=== PATIENT | male | born 1950 | race Caucasian/White ===

== ENCOUNTER 2017-01-20 16:49 | Inpatient (IN) | payer MEDICARE, BC ==
[~2017-01-20] VITALS: Ht 177.8 cm; Wt 126.0 kg
[~2017-01-20 16:49] MED LIST: ACULAR LS 5 ML5 ML OS; ALBUTEROL SULF0.5 M1 IH; ALBUTEROL SULFAT3 M3 IH; ALBUTEROL0.83 MG/ML IH; ALBUTEROL1.25 MG/3 IH; ALDACTONE 25MG25 M1 PO; ALEVE 220MG220 MG PO; ALLEGRA 180MG180 MG PO; ALLEGRA ALLERGY60 MG PO; AMBIEN 5MG TABLE5 MG PO; AMITRIPTYLINE H10 M1 PO; ASPIRIN 32325 MG/TAB PO; ASPIRIN 81M81 MG/TA2 PO; ASPIRIN E.C. 8181 MG PO; ATARAX 10MG10 MG/TAB PO; ATARAX 25MG25 MG/TAB PO; ATENOLOL25 MG PO; ATENOLOL50 MG PO; ATIVAN1 MG PO; AVINZA30 M1 PO; B COMPLEX #11 TA1 PO; B COMPLEX #11 TAB PO; B COMPLEX1 TA2 PO; B-1250 MCG; BENADRYL25 M2 PO; BISACODYL5 MG PO; CARDENE 20MG CA20 M1 PO; CEPHALEXIN500 M1 PO; CIPRO 500MG TA500 MG PO; CLARITIN 1010 MG/TAB PO; COLACE 100100 MG/CAP PO; COLACE100 MG/10 PO; COLACE50 MG PO; CORDARONE200 MG/TAB; CORDARONE200 MG/TAB PO; COREG 3.123.125 MG/T PO; COREG 6.256.25 MG/TA PO; COUMADIN 3MG3 MG/TAB PO; COUMADIN 5MG5 MG/TAB PO; COUMADIN2.5 MG PO; COUMADIN4 MG PO; COUMADIN5 M1 PO; COUMADIN7.5 MG PO; COZAAR100 MG PO; CYANOCOBAL1000 MCG/M IM; CYCLOBENZAPRINE10 MG PO; CYMBALTA 30MG30 MG PO; CYMBALTA 60MG60 MG PO; DESYREL 50MG50 MG PO; DEXILANT60 MG PO; DIPROLENE OI 15GM OP; DOXYCYCLINE 10100 MG PO; ELIQUIS 5MG PO; FERROUS SU325 MG/TAB PO; FERROUS SULFATE65 MG PO; FIBER TABLETS1 TAB PO; FLEXERIL 1010 MG/TAB PO; FLEXERIL PO; FLOMAX 0.40.4 MG/CAP PO; FLOMAX0.4 MG PO; FLOVENT 44MCG I13 GM IH; FOLIC ACID 11 MG/TA1 PO; GLYCOLAX17 GM/PACK PO; HYDROXYZINE PAM25 MG PO; HYDROXYZINE50 MG PO; IMDUR 30MG30 MG/TAB PO; IMDUR 60MG60 MG/TAB PO; IMDUR60 MG PO; ISORDIL TITRADO30 MG PO; K-TAB20 PO; KADIAN30 MG PO; KLOR-CON M2020 MEQ PO; LASIX 20MG TABL20 MG PO; LASIX 40MG TABL40 MG PO; LASIX20 MG PO; LEVAQUIN 5500 MG/TA1 PO; LIPITOR 10MG10 MG PO; LISINOPRIL/HCTZ1 TAB PO; LUNESTA3 MG PO; LYRICA 100MG C100 M1 PO; METAMUCIL PO; METAMUCIL3.4 GM/DOS PO; MILK OF MA400 MG/5 M PO; MIRALAX PA17 GM/Dose PO; MIRTAZAPINE7.5 MG PO; MORPHINE 1515 MG/TAB PO; MS CONTIN 115 MG/TAB PO; MSIR30 M1 PO; MSIR30 MG PO; MULTI VITAMINS1 TAB PO; MULTIPLE VITAMI1 CAP PO; MULTIPLE VITAMI1 TAB PO; MYSOLINE 5050 MG/TAB PO; NATURAL TEARS OS; NEURONTIN300 MG PO; NEURONTIN300 MG/CAP PO; NITRO-DUR0.1 MG/PAT TD; NITROQUICK0.4 MG SL; NITROSTAT0.4 MG/TAB SL; NIZORAL CREAM15 GM TP; NO HOME MEDICATIONS; NORCO 325 MG-51 TAB PO; NORVASC 5MG5 MG/TAB PO; OCUFLOX 10 ML10 ML OS; OMEPRAZOLE DR20 MG PO; OXYCONTIN 20MG20 MG PO; PEPCID 20MG TAB20 MG PO; PLAVIX 75MG TAB75 MG PO; POLYETHYLENE GL1 PO6; PRED FORTE 1 ML1 ML OS; PRILOTC PO; PRINIVIL10 MG PO; PROAIR HFA0.09 MG/AC IH; PROBIOTIC FORMU1 CAP PO; PROSCAR 5MG5 MG PO; PROTONIX 40MG T40 MG PO; PROVENTIL0.09 MG/A1 IH; PULMO-AIDE COMP1 DEV; RANEXA 500MG T500 MG PO; ROXANOL PO; SENNA LAX8.6 MG PO; SENNA SOFT15 MG PO; SINEMET 10/101 UDTAB PO; SLOW-MAG 6464 MG/TAB PO; STIOLTO RESPIMAT4 GM IH; STOOL SOFTENER100 M2 PO; TENORMIN 2525 MG/TAB PO; THERAGRAN TAB1 UDTAB PO; THIAMINE 1100 MG/TAB PO; TRIAMCINOLONE AC0.13 TP; TYLENOL 325MG325 MG PO; TYLENOL 500MG500 MG PO; TYLENOL EXTRA500 M1 PO; ULTRAM 50MG TAB50 MG PO; ULTRAM ER100 MG PO; VERAMYST27.5 MCG/A NS; VICODIN 5/5001 UDTAB PO; VITAMIN B COMPL1 TA1 PO; VITAMIN C BUFF500 MG PO; VITAMIN C500 MG PO; VODKA; ZANTAC 150MG T150 MG PO; ZAROXOLYN 2.52.5 MG PO; ZESTRIL 10MG10 MG PO; ZESTRIL 5MG5 MG PO; ZOCOR 40MG40 MG PO; ZOCOR40 MG PO; [UNRECOGNIZED DRUG - OTHER] PO
[2017-01-20 18:38] VITALS: BP 142/78; PULSE 66; TEMP 97.5
[2017-01-20 19:23] VITALS: BP 142/75; PULSE 67; TEMP 79.5
[2017-01-20 23:51] VITALS: BP 117/64; PULSE 63; TEMP 98.5
[2017-01-21 03:22] VITALS: BP 131/68; PULSE 60; TEMP 98.7
[2017-01-21 07:54] VITALS: BP 120/64; PULSE 64; TEMP 98.8
[2017-01-21 08:10] LABS: CALCIUM 8.1 mg/dL (8.4-10.2); CREATININE, serum 1.06 mg/dL (0.66-1.25); POTASSIUM 3.2 mmol/L (3.4-5.0)
[2017-01-21 12:32] VITALS: BP 118/96; PULSE 66; TEMP 97.4
[2017-01-21 16:35] VITALS: BP 112/83; PULSE 59; TEMP 98.1
[2017-01-21 20:15] VITALS: BP 119/71; PULSE 61; TEMP 98.6
[2017-01-21 22:50] VITALS: BP 118/70; PULSE 60; TEMP 98.7
[2017-01-22 03:40] VITALS: BP 122/79; PULSE 58; TEMP 98.2
[2017-01-22 07:23] VITALS: BP 136/70; PULSE 60; TEMP 97.3
[2017-01-22 07:54] LABS: CALCIUM 8.7 mg/dL (8.4-10.2); CREATININE, serum 1.13 mg/dL (0.66-1.25); POTASSIUM 3.7 mmol/L (3.4-5.0)
[2017-01-22 11:08] VITALS: BP 153/89; PULSE 81; TEMP 98.3
[2017-01-22 17:01] VITALS: BP 124/75; PULSE 60; TEMP 97.8
[2017-01-22 19:52] VITALS: BP 124/80; PULSE 57; TEMP 98.7
[2017-01-22 23:27] VITALS: BP 103/63; PULSE 59; TEMP 98.2
[2017-01-23] VITALS (7 sets, daily range): BP systolic 96–136; BP diastolic 63–89; PULSE 58–80; TEMP 97.6–99.7
[2017-01-23 07:12] LABS: CALCIUM 8.8 mg/dL (8.4-10.2); CREATININE, serum 1.31 mg/dL (0.66-1.25); POTASSIUM 3.6 mmol/L (3.4-5.0)
[2017-01-23 09:36] LABS: BASO # 0.1 (0.0-0.2); BASO % 0.7 % (0.0-2.0); EOS # 0.6 (0.0-0.7); EOS % 7.7 % (0-4.0); GRAN # 4.4 (1.4-6.5); GRAN % 58.8 % (42.2-75.2); LYMPH # 1.1 (1.2-3.4); LYMPH % 15.2 % (20.0-51.0); MEAN CORPUSCULAR HGB CONC 33 g/dl (33.0-37.0); MEAN PLATELET VOLUME 10.6 fl (7.4-10.4); MONO # 1.3 (0.1-0.6); MONO % 17.3 % (1.7-9.3); PLATELET COUNT 161 K/mm3 (130-400); RED BLOOD COUNT 3.33 M/mm3 (4.20-5.60); REDCELL DISTRIBUTION WIDTH-CV 15.4 % (11.5-14.5); WHITE BLOOD COUNT 7.4 K/mm3 (4.8-10.8)
[2017-01-23 09:38] LABS: ALLEN TEST YES; ALLENS TEST RESULT PASS; ARTERIAL BLD GAS O2 SATURATION 85.6 % (92-100); ARTERIAL BLD GAS TCO2 CT 31.9; ARTERIAL BLOOD GAS BASE EXCESS 5.3 (-2-2); ARTERIAL BLOOD GAS HCO3 30.4 meq/L (22-26); ARTERIAL BLOOD GAS PHT 7.43 C (7.35-7.45); ARTERIAL BLOOD GAS PO2 55.2 mmHg (80-100); ARTERIAL BLOOD GAS PO2T 55.2 (80-100); ARTERIAL BLOOD GAS pH 7.43 (7.35-7.45); ATS? YES; OXYHEMOGLOBIN 84.5 %
[2017-01-23 09:46] LABS: ALANINE AMINOTRANSFERASE 25 U/L (21-72); ALBUMIN 3.6 gm/dL (3.5-5.0); ALKALINE PHOSPHATASE 124 U/L (50-136); BILIRUBIN,TOTAL 1.3 mg/dL (0.0-1.0); MAGNESIUM 1.7 mg/dL (1.6-2.3); PHOSPHOROUS 3.7 mg/dL (2.5-4.5); TOTAL PROTEIN 6.6 gm/dL (6.4-8.2)
[2017-01-23 09:51] LABS: HEMATOCRIT 36.4 % (42.0-52.0); HEMOGLOBIN 11.9 g/dl (13.5-18.0); MEAN CORPUSCULAR HEMOGLOBIN 36 pg (27.0-31.0)
[2017-01-23 09:52] LABS: MEAN CELL VOLUME 109 fl (80.0-100.0)
[2017-01-23 09:58] LABS: BILIRUBIN,DIRECT 0.5 mg/dL (0.0-0.4)
[2017-01-23 10:02] LABS: TROPONIN-I < 0.012 ng/mL (0.000-0.034)
[2017-01-23 10:12] LABS: LIPASE 12 U/L (23-300)
[2017-01-23 16:07] LABS: PH 6 (5-8); SQUAMOUS EPITHELIAL None Seen /hpf; URINE APPEARANCE Hazy; URINE BACTERIA None Seen /hpf; URINE BILIRUBIN Negative (NEGATIVE); URINE BLOOD Negative (NEGATIVE); URINE COLOR Amber; URINE GLUCOSE Negative (NEGATIVE); URINE KETONE Negative (NEGATIVE); URINE RBC 0-2 /hpf; URINE UROBILINOGEN >=4.0 mg/dL (NEGATIVE); URINE WBC 0-2 /hpf
[2017-01-24 00:09] VITALS: BP 116/62; PULSE 62; TEMP 98.5
[2017-01-24 03:17] VITALS: BP 148/73; PULSE 68; TEMP 97.8
[2017-01-24 07:39] LABS: CALCIUM 8.5 mg/dL (8.4-10.2); CREATININE, serum 1.09 mg/dL (0.66-1.25); POTASSIUM 3.6 mmol/L (3.4-5.0)
[2017-01-24 07:41] VITALS: BP 111/60; PULSE 60; TEMP 98.2
[2017-01-24 10:13] LABS: BASO % 0.6 % (0.0-2.0); EOS # 0.5 (0.0-0.7); EOS % 7.5 % (0-4.0); GRAN # 4.1 (1.4-6.5); GRAN % 61.5 % (42.2-75.2); HEMATOCRIT 35.9 % (42.0-52.0); HEMOGLOBIN 11.7 g/dl (13.5-18.0); LYMPH # 0.8 (1.2-3.4); LYMPH % 12.3 % (20.0-51.0); MEAN CELL VOLUME 110 fl (80.0-100.0); MEAN CORPUSCULAR HEMOGLOBIN 36 pg (27.0-31.0); MEAN CORPUSCULAR HGB CONC 33 g/dl (33.0-37.0); MEAN PLATELET VOLUME 11.5 fl (7.4-10.4); MONO # 1.2 (0.1-0.6); MONO % 17.8 % (1.7-9.3); PLATELET COUNT 160 K/mm3 (130-400); RED BLOOD COUNT 3.26 M/mm3 (4.20-5.60); REDCELL DISTRIBUTION WIDTH-CV 15.5 % (11.5-14.5); WHITE BLOOD COUNT 6.7 K/mm3 (4.8-10.8)
[2017-01-24 11:29] VITALS: BP 110/75; PULSE 64; TEMP 98.6
[2017-01-24] MEDS ORDERED: SYNTHROID0.05 MG/TA PO (14:23)
[2017-01-24] MEDS ORDERED: DEMADEX 20MG20 M1 PO (14:26)
[2017-01-24 16:07] VITALS: BP 132/66; PULSE 72; TEMP 98.2
[2017-01-24 21:00] LABS: CALCIUM 8.7 mg/dL (8.4-10.2); CREATININE, serum 1.05 mg/dL (0.66-1.25); POTASSIUM 3.9 mmol/L (3.4-5.0)
[2017-01-24 21:15] VITALS: BP 127/70; PULSE 64; TEMP 97.9
== END 2017-01-24 22:30 | disposition home or self-care (01) | DRG 292 ==
LOC: MEDICAL 16:49
PROVIDERS: Internal Medicine; Internal Medicine Interventional Cardiology; Nurse Practitioner Family; Physician Assistant Medical
DX: I11.0 Hypertensive heart disease with heart failure (principal); I69.351 Hemiplegia and hemiparesis following cerebral infarction affecting right dominant side; E87.4 Mixed disorder of acid-base balance; N17.9 Acute kidney failure, unspecified; Z66 Do not resuscitate; I50.33 Acute on chronic diastolic (congestive) heart failure; I25.10 Atherosclerotic heart disease of native coronary artery without angina pectoris; Z95.1 Presence of aortocoronary bypass graft; J44.9 Chronic obstructive pulmonary disease, unspecified; I48.91 Unspecified atrial fibrillation; Z95.810 Presence of automatic (implantable) cardiac defibrillator; I36.1 Nonrheumatic tricuspid (valve) insufficiency; E03.9 Hypothyroidism, unspecified
CPT/HCPCS: OP; 99223; 99233-AI; C9113; J1940; J3420; J7060; Q9967

== ENCOUNTER 2017-02-05 12:00 | Outpatient (RCR) | payer MEDICARE, BC ==
[2017-01-17 12:50] VITALS: BP 124/65; PULSE 60; TEMP 97.8
[2017-01-17 13:10] LABS: CALCIUM 8.5 mg/dL (8.4-10.2); CREATININE, serum 1.09 mg/dL (0.66-1.25); POTASSIUM 4.1 mmol/L (3.4-5.0)
[2017-01-17 16:17] VITALS: BP 111/54; PULSE 58; TEMP 97.7
[2017-01-18 12:34] VITALS: BP 121/65; PULSE 61; TEMP 98.1
[2017-01-18 14:06] LABS: CALCIUM 8.9 mg/dL (8.4-10.2); CREATININE, serum 1.49 mg/dL (0.66-1.25); POTASSIUM 4.2 mmol/L (3.4-5.0)
[2017-01-18 18:03] VITALS: BP 146/67; PULSE 60
[2017-01-19 12:22] VITALS: BP 130/69; PULSE 63; TEMP 97.7
[2017-01-19 14:56] LABS: CALCIUM 8.7 mg/dL (8.4-10.2); CREATININE, serum 1.3 mg/dL (0.66-1.25); POTASSIUM 4.4 mmol/L (3.4-5.0)
[2017-01-19 17:37] VITALS: BP 121/61; PULSE 62
[2017-01-20 12:35] VITALS: BP 119/77; PULSE 60; TEMP 97.3
[2017-01-20 12:40] LABS: CALCIUM 8.3 mg/dL (8.4-10.2); CREATININE, serum 1.11 mg/dL (0.66-1.25)
[2017-01-31 11:30] VITALS: BP 120/66; PULSE 62; TEMP 98.2
[2017-01-31 11:53] LABS: CALCIUM 9.1 mg/dL (8.4-10.2); CREATININE, serum 1.16 mg/dL (0.66-1.25); POTASSIUM 5.4 mmol/L (3.4-5.0)
[2017-01-31 17:31] VITALS: BP 122/65; PULSE 59; TEMP 97.7
[2017-02-01 12:36] VITALS: BP 123/88; PULSE 61; TEMP 98.2
[2017-02-01 14:37] LABS: CALCIUM 9.1 mg/dL (8.4-10.2); CREATININE, serum 1.09 mg/dL (0.66-1.25); POTASSIUM 4.3 mmol/L (3.4-5.0)
[2017-02-02 12:12] VITALS: BP 130/72; PULSE 65; TEMP 98.4
[2017-02-02 13:46] LABS: CALCIUM 8.7 mg/dL (8.4-10.2); CREATININE, serum 1.08 mg/dL (0.66-1.25); POTASSIUM 4.1 mmol/L (3.4-5.0)
[2017-02-03 12:35] VITALS: BP 107/64; PULSE 60; TEMP 98.3
[2017-02-03 12:53] LABS: CALCIUM 8.6 mg/dL (8.4-10.2); CREATININE, serum 1.17 mg/dL (0.66-1.25); POTASSIUM 4.3 mmol/L (3.4-5.0)
[2017-02-04 11:02] VITALS: BP 120/73; PULSE 72; TEMP 97.9
[2017-02-04 11:18] LABS: CALCIUM 8.6 mg/dL (8.4-10.2); CREATININE, serum 1.08 mg/dL (0.66-1.25); POTASSIUM 4.5 mmol/L (3.4-5.0)
[~2017-02-05] VITALS: Ht 177.8 cm; Wt 73.1 kg
[2017-02-05 11:15] VITALS: BP 130/76; PULSE 62; TEMP 98.7
[2017-02-05 11:43] LABS: CALCIUM 8.8 mg/dL (8.4-10.2); CREATININE, serum 1.14 mg/dL (0.66-1.25); POTASSIUM 4.2 mmol/L (3.4-5.0)
[~2017-02-05 12:00] MED LIST changes: +DEMADEX 20MG20 M1 PO; +SYNTHROID0.05 MG/TA PO
== END 2017-02-05 18:00 | disposition home or self-care (01) ==
LOC: EUO 12:00
PROVIDERS: Family Medicine; Internal Medicine Interventional Cardiology
DX: E53.8 Deficiency of other specified B group vitamins (principal)
CPT/HCPCS: OP; G0378; G0379; J1940; J7060

== ENCOUNTER 2017-03-31 10:45 | Outpatient (RCR) | payer MEDICARE, BC | END 2017-05-20 | disposition home or self-care (01) | LOC: MKS.ESL.PT | DX: R60.9 Edema, unspecified (principal); I50.9 Heart failure, unspecified | CPT/HCPCS: G8978-GP; G8979-GP; G9174-GN; G9175-GN ==

== ENCOUNTER → 2017-04-01 | Outpatient (CLI) | payer MEDICARE, BC ==
[~2017-04-01] MED LIST changes: +ALDACTONE50 MG PO; +AMPICILLIN 22 G/VIAL IV; +BUMEX2 MG PO; +DEMADEX100 MG PO; +DULCOLAX S10 MG/SUPP RC; +HEPARIN LOCK FLU5 M1 IV; +MAG-OX 400400 MG/TAB PO; +MILK OF MA400 MG/52 PO; +MS CONTIN 330 MG/TAB PO; +NORCO 325 MG-7.1 TAB PO; +NS INT FLUSH 1010 ML IV; +OYSCO 500500 M1 PO; +SYNTHROID0.112 MG/T PO; +VANCOCIN HCL1 GM IV; +VITAMIN B COMPL1 T16 PO; +VITAMINC500CH PO; +ZANTAC 300300 MG PO
== END ==
LOC: EDSEX 10:30 → COL.RAD 10:30
DX: E03.8 Other specified hypothyroidism (principal)

== ENCOUNTER → 2017-04-30 | Outpatient (CLI) | payer MEDICARE, BC | LOC: COL.RAD 14:05 | DX: M79.89 Other specified soft tissue disorders (principal) ==

== ENCOUNTER 2017-05-12 17:30 | Emergency (ER) | payer MEDICARE, BC ==
[~2017-05-12] VITALS: Ht 177.8 cm; Wt 111.4 kg
[~2017-05-12 17:30] MED LIST changes: -ALDACTONE50 MG PO; -AMPICILLIN 22 G/VIAL IV; -BUMEX2 MG PO; -DEMADEX100 MG PO; -DULCOLAX S10 MG/SUPP RC; -HEPARIN LOCK FLU5 M1 IV; -MAG-OX 400400 MG/TAB PO; -MILK OF MA400 MG/52 PO; -MS CONTIN 330 MG/TAB PO; -NORCO 325 MG-7.1 TAB PO; -NS INT FLUSH 1010 ML IV; -OYSCO 500500 M1 PO; -SYNTHROID0.112 MG/T PO; -VANCOCIN HCL1 GM IV; -VITAMIN B COMPL1 T16 PO; -VITAMINC500CH PO; -ZANTAC 300300 MG PO
[2017-05-12 17:33] VITALS: TEMP 98.1
[2017-05-12 18:33] LABS: BASO # 0.1 (0.0-0.2); BASO % 0.7 % (0.0-2.0); EOS # 0.3 (0.0-0.7); EOS % 3.5 % (0-4.0); GRAN # 5.9 (1.4-6.5); GRAN % 70.8 % (42.2-75.2); LYMPH # 0.9 (1.2-3.4); LYMPH % 11.3 % (20.0-51.0); MEAN CELL VOLUME 100 fl (80.0-100.0); MEAN CORPUSCULAR HGB CONC 34 g/dl (33.0-37.0); MEAN PLATELET VOLUME 10.8 fl (7.4-10.4); MONO # 1.1 (0.1-0.6); MONO % 13.3 % (1.7-9.3); PLATELET COUNT 144 K/mm3 (130-400); RED BLOOD COUNT 3.42 M/mm3 (4.20-5.60); REDCELL DISTRIBUTION WIDTH-CV 15.7 % (11.5-14.5); WHITE BLOOD COUNT 8.3 K/mm3 (4.8-10.8)
[2017-05-12 18:35] LABS: HEMATOCRIT 34.1 % (42.0-52.0); HEMOGLOBIN 11.6 g/dl (13.5-18.0); MEAN CORPUSCULAR HEMOGLOBIN 34 pg (27.0-31.0)
[2017-05-12 18:36] LABS: INR 1.2 (0.8-3.0); PROTHROMBIN TIME 13.9 SECONDS (9.7-12.8)
[2017-05-12 18:38] LABS: PARTIAL THROMBOPLASTIN TIME 34.9 SECONDS (26.0-37.0)
[2017-05-12 18:44] LABS: ADJUSTED CALCIUM 8.5 mg/dL (8.4-10.2); ALANINE AMINOTRANSFERASE 21 U/L (21-72); ALBUMIN 4.2 gm/dL (3.5-5.0); ALKALINE PHOSPHATASE 133 U/L (50-136); ANION GAP 13 mmol/L (7-16); BILIRUBIN,TOTAL 1.2 mg/dL (0.0-1.0); BLOOD UREA NITROGEN 19 mg/dL (9-20); CALCIUM 8.7 mg/dL (8.4-10.2); CARBON DIOXIDE 27 mmol/L (22-30); CREATININE, serum 0.95 mg/dL (0.66-1.25); GLUCOSE 110 mg/dL (74-106); MAGNESIUM 2.2 mg/dL (1.6-2.3); PHOSPHOROUS 3.7 mg/dL (2.5-4.5); SODIUM 127 mmol/L (137-145); TOTAL PROTEIN 7.4 gm/dL (6.4-8.2)
[2017-05-12 18:47] LABS: CHLORIDE 87 mmol/L (98-107)
[2017-05-12 18:56] LABS: B-TYPE NATRIURETIC PEPTIDE 1880 pg/mL (0-125)
[2017-05-12 18:58] LABS: TROPONIN-I < 0.012 ng/mL (0.000-0.034)
[2017-05-12 21:24] VITALS: BP 149/78; PULSE 84
== END 2017-05-12 21:31 | disposition home or self-care (01) ==
LOC: COL.ER 17:30
PROVIDERS: Emergency Medicine
DX: I11.0 Hypertensive heart disease with heart failure (principal); I50.9 Heart failure, unspecified; I25.10 Atherosclerotic heart disease of native coronary artery without angina pectoris; E87.1 Hypo-osmolality and hyponatremia; I48.91 Unspecified atrial fibrillation; Z79.01 Long term (current) use of anticoagulants; Z99.81 Dependence on supplemental oxygen; Z95.810 Presence of automatic (implantable) cardiac defibrillator; Z86.711 Personal history of pulmonary embolism; E78.5 Hyperlipidemia, unspecified

== ENCOUNTER 2017-05-30 12:30 | Outpatient (RCR) | payer MEDICARE, BC ==
[2017-06-08] MEDS ORDERED: PROTONIX 40MG T40 MG PO (23:59)
[2017-06-09] MEDS ORDERED: SYNTHROID0.112 MG/T PO (00:01)
[2017-06-09] MEDS ORDERED: BUMEX2 MG PO (00:03)
[2017-06-09] MEDS ORDERED: ZANTAC 300300 MG PO (00:05)
[2017-06-09] MEDS ORDERED: CYMBALTA 30MG30 MG PO (00:06)
[2017-06-09] MEDS ORDERED: PROAIR HFA0.09 MG/AC IH (00:12)
[2017-06-13] MEDS ORDERED: MS CONTIN 115 MG/TAB PO (09:30)
[2017-06-27] MEDS ORDERED: TYLENOL 325MG325 MG PO (08:22)
[2017-07-12] MEDS ORDERED: MSIR30 MG PO (14:51)
[2017-07-12] MEDS ORDERED: BUMEX2 MG PO (15:08)
[2017-07-12] MEDS ORDERED: IMDUR 60MG60 MG/TAB PO (15:15)
[2017-07-15] MEDS ORDERED: FLOVENT 44MCG I13 GM IH (14:19)
[2017-07-21] MEDS ORDERED: VITAMINC500CH PO (08:28)
[2017-07-21] MEDS ORDERED: VITAMIN B COMPL1 T16 PO (08:28)
[2017-07-21] MEDS ORDERED: OYSCO 500500 M1 PO (08:29)
[2017-07-21] MEDS ORDERED: NORCO 325 MG-51 TAB PO (09:01)
[2017-07-25] MEDS ORDERED: MS CONTIN 330 MG/TAB PO (15:28)
[2017-08-11] MEDS ORDERED: HEPARIN LOCK FLU5 M1 IV (08:43)
[2017-08-11] MEDS ORDERED: MS CONTIN 330 MG/TAB PO (08:43)
[2017-08-11] MEDS ORDERED: AMPICILLIN 22 G/VIAL IV (08:43)
[2017-08-11] MEDS ORDERED: NORCO 325 MG-7.1 TAB PO (08:43)
[2017-08-11] MEDS ORDERED: DULCOLAX S10 MG/SUPP RC (08:56)
[2017-08-11] MEDS ORDERED: ALDACTONE50 MG PO (09:22)
[2017-08-11] MEDS ORDERED: DEMADEX100 MG PO (09:24)
[2017-08-11] MEDS ORDERED: MAG-OX 400400 MG/TAB PO (09:25)
[2017-08-11] MEDS ORDERED: MILK OF MA400 MG/52 PO (09:26)
[2017-08-11] MEDS ORDERED: NS INT FLUSH 1010 ML IV (09:28)
[2017-08-11] MEDS ORDERED: CORDARONE200 MG/TAB PO (10:03)
[2017-08-11] MEDS ORDERED: VANCOCIN HCL1 GM IV (12:02)
[2017-08-19] MEDS ORDERED: ALDACTONE50 MG PO (11:35)
[2017-08-19] MEDS ORDERED: PROBIOTIC GOLD1 EACH PO (11:35)
[2017-08-19] MEDS ORDERED: CORDARONE200 MG/TAB PO (11:36)
[2017-08-19] MEDS ORDERED: CEPACOL SORE TH1 LO8 MM (11:36)
[2017-08-19] MEDS ORDERED: ASPIRIN 32325 MG/TAB PO (11:36)
[2017-08-19] MEDS ORDERED: COREG 6.256.25 MG/TA PO (11:37)
[2017-08-19] MEDS ORDERED: B-121000 MCG PO (11:37)
[2017-08-19] MEDS ORDERED: DEMADEX100 MG PO (11:38)
[2017-08-19] MEDS ORDERED: DULCOLAX S10 MG/SUPP RC (11:45)
[2017-08-19] MEDS ORDERED: ELIQUIS 5MG PO (11:47)
[2017-08-19] MEDS ORDERED: FLOMAX 0.40.4 MG/CAP PO (11:49)
[2017-08-19] MEDS ORDERED: FERROUS GL325 MG/TAB PO (11:49)
[2017-08-19] MEDS ORDERED: FLEET ENEM1 BOT/133 RC (11:49)
[2017-08-19] MEDS ORDERED: FLOVENT 44MCG I13 GM IH (11:50)
[2017-08-19] MEDS ORDERED: IMDUR 60MG60 MG/TAB PO (11:51)
[2017-08-19] MEDS ORDERED: LYRICA 100MG C100 M1 PO (11:51)
[2017-08-19] MEDS ORDERED: SLOW-MAG 6464 MG/TAB PO (11:52)
== END 2017-08-24 | disposition still patient (30) ==
LOC: MKS.ESL.PT
DX: R53.1 Weakness (principal); R26.81 Unsteadiness on feet
CPT/HCPCS: G8978-GP; G8979-GP

== ENCOUNTER 2017-06-08 20:33 | Inpatient (IN) | payer MEDICARE, BC ==
[~2017-06-08] VITALS: Ht 177.8 cm; Wt 111.5 kg
[2017-06-08 21:40] LABS: BASO # 0.1 (0.0-0.2); EOS # 0.5 (0.0-0.7); EOS % 6.3 % (0-4.0); GRAN # 5.1 (1.4-6.5); GRAN % 61.4 % (42.2-75.2); HEMATOCRIT 38.4 % (42.0-52.0); LYMPH # 1.5 (1.2-3.4); MEAN CELL VOLUME 101 fl (80.0-100.0); MEAN CORPUSCULAR HEMOGLOBIN 34 pg (27.0-31.0); MEAN CORPUSCULAR HGB CONC 34 g/dl (33.0-37.0); MEAN PLATELET VOLUME 11.9 fl (7.4-10.4); MONO % 12.1 % (1.7-9.3); PLATELET COUNT 198 K/mm3 (130-400); REDCELL DISTRIBUTION WIDTH-CV 15.6 % (11.5-14.5); WHITE BLOOD COUNT 8.4 K/mm3 (4.8-10.8)
[2017-06-08 21:41] LABS: INR 1.6 (0.8-3.0); PROTHROMBIN TIME 17.8 SECONDS (9.7-12.8)
[2017-06-08 21:45] LABS: ADJUSTED CALCIUM 8.7 mg/dL (8.4-10.2); ALBUMIN 4.2 gm/dL (3.5-5.0); BILIRUBIN,TOTAL 0.6 mg/dL (0.0-1.0); CALCIUM 8.9 mg/dL (8.4-10.2); TOTAL PROTEIN 7.5 gm/dL (6.4-8.2)
[2017-06-08 23:48] LABS: THYROID STIMULATING HORMONE 2.37 uIU/mL (0.465-4.680)
[2017-06-08] MEDS ORDERED: PROTONIX 40MG T40 MG PO (23:59)
[2017-06-09] MEDS ORDERED: SYNTHROID0.112 MG/T PO (00:01)
[2017-06-09] MEDS ORDERED: BUMEX2 MG PO (00:03)
[2017-06-09] MEDS ORDERED: ZANTAC 300300 MG PO (00:05)
[2017-06-09] MEDS ORDERED: CYMBALTA 30MG30 MG PO (00:06)
[2017-06-09] MEDS ORDERED: PROAIR HFA0.09 MG/AC IH (00:12)
[2017-06-09 00:59] VITALS: BP 121/60; PULSE 59; TEMP 98.7
[2017-06-09 08:00] VITALS: BP 132/63; PULSE 59; TEMP 98.6
[2017-06-09 08:02] LABS: BASO # 0.1 (0.0-0.2); BASO % 0.5 % (0.0-2.0); EOS # 0.5 (0.0-0.7); GRAN # 7.7 (1.4-6.5); GRAN % 73.6 % (42.2-75.2); HEMATOCRIT 37.2 % (42.0-52.0); HEMOGLOBIN 12.2 g/dl (13.5-18.0); LYMPH # 1.1 (1.2-3.4); LYMPH % 10.1 % (20.0-51.0); MEAN CELL VOLUME 105 fl (80.0-100.0); MEAN CORPUSCULAR HEMOGLOBIN 34 pg (27.0-31.0); MEAN CORPUSCULAR HGB CONC 33 g/dl (33.0-37.0); MEAN PLATELET VOLUME 11.5 fl (7.4-10.4); MONO # 1.1 (0.1-0.6); MONO % 10.3 % (1.7-9.3); PLATELET COUNT 184 K/mm3 (130-400); RED BLOOD COUNT 3.56 M/mm3 (4.20-5.60); WHITE BLOOD COUNT 10.5 K/mm3 (4.8-10.8)
[2017-06-09 08:10] LABS: CALCIUM 8.8 mg/dL (8.4-10.2); POTASSIUM 4.2 mmol/L (3.4-5.0)
[2017-06-09 12:23] LABS: PH 7 (5-8); SQUAMOUS EPITHELIAL None Seen /hpf; URINE APPEARANCE Hazy; URINE BACTERIA None Seen /hpf; URINE BILIRUBIN Negative (NEGATIVE); URINE BLOOD 3+ (NEGATIVE); URINE COLOR Yellow; URINE GLUCOSE Negative (NEGATIVE); URINE KETONE Negative (NEGATIVE); URINE RBC >50 /hpf; URINE UROBILINOGEN Negative (NEGATIVE)
[2017-06-09 12:37] VITALS: BP 120/69; PULSE 59; TEMP 98.8
[2017-06-09 17:16] VITALS: BP 155/80; PULSE 60; TEMP 98
[2017-06-09 22:06] VITALS: BP 121/54; PULSE 59; TEMP 99
[2017-06-10] VITALS (9 sets, daily range): BP systolic 106–129; BP diastolic 58–79; PULSE 59–65; TEMP 98–99.8
[2017-06-10 08:18] LABS: HEMATOCRIT 37.8 % (42.0-52.0); HEMOGLOBIN 12.2 g/dl (13.5-18.0)
[2017-06-10 11:49] LABS: INR 1.4 (0.8-3.0); PROTHROMBIN TIME 15.2 SECONDS (9.7-12.8)
[2017-06-11 02:10] VITALS: BP 119/62; PULSE 58; TEMP 99.8
[2017-06-11 05:10] VITALS: BP 117/60; PULSE 59; TEMP 99.6
[2017-06-11 07:11] LABS: HEMATOCRIT 37.2 % (42.0-52.0); HEMOGLOBIN 12.3 g/dl (13.5-18.0)
[2017-06-11 07:21] LABS: CALCIUM 8.8 mg/dL (8.4-10.2); CREATININE, serum 1.21 mg/dL (0.66-1.25); POTASSIUM 3.8 mmol/L (3.4-5.0)
[2017-06-11 10:00] VITALS: BP 92/59; PULSE 62; TEMP 98.8
[2017-06-11 14:42] VITALS: BP 111/71; PULSE 61; TEMP 99
[2017-06-11 18:25] VITALS: BP 113/71; PULSE 58; TEMP 99.2
[2017-06-11 21:58] VITALS: BP 126/74; PULSE 64; TEMP 98.5
[2017-06-12 01:56] VITALS: BP 110/67; PULSE 88; TEMP 97.3
[2017-06-12 05:54] VITALS: BP 111/83; PULSE 60; TEMP 98.4
[2017-06-12 07:38] LABS: HEMATOCRIT 34.9 % (42.0-52.0); HEMOGLOBIN 11.4 g/dl (13.5-18.0)
[2017-06-12 09:39] VITALS: BP 147/76; PULSE 56; TEMP 98.7
[2017-06-12 13:43] VITALS: BP 110/69; PULSE 60; TEMP 98.1
[2017-06-12 17:49] VITALS: BP 112/68; PULSE 60; TEMP 98
[2017-06-12 21:55] VITALS: BP 129/66; PULSE 99; TEMP 98.5
[2017-06-13 02:15] VITALS: BP 111/61; PULSE 57; TEMP 98.3
[2017-06-13 05:16] VITALS: BP 133/73; PULSE 59; TEMP 98.2
[2017-06-13] MEDS ORDERED: MS CONTIN 115 MG/TAB PO (09:30)
[2017-06-13 09:41] VITALS: BP 113/58; PULSE 63; TEMP 98.5
[2017-06-13 12:52] VITALS: BP 113/58; PULSE 63; TEMP 98.5
== END 2017-06-13 13:02 | DRG 470 ==
LOC: COL.ER 20:33 → ICU 21:40 → SURG 21:40
PROVIDERS: Internal Medicine; Nurse Anesthetist, Certified Registered; Nurse Practitioner; Nurse Practitioner Family; Orthopaedic Surgery
PROC: 0SRR0JA Replacement of Right Hip Joint, Femoral Surface with Synthetic Substitute, Uncemented, Open Approach (ICD-10-PCS; principal; 2017-06-10 13:30)
DX: S72.001A Fracture of unspecified part of neck of right femur, initial encounter for closed fracture (principal); I50.32 Chronic diastolic (congestive) heart failure; I69.351 Hemiplegia and hemiparesis following cerebral infarction affecting right dominant side; I11.0 Hypertensive heart disease with heart failure; I25.10 Atherosclerotic heart disease of native coronary artery without angina pectoris; I48.91 Unspecified atrial fibrillation; J44.9 Chronic obstructive pulmonary disease, unspecified; W18.30XA Fall on same level, unspecified, initial encounter; Z95.1 Presence of aortocoronary bypass graft; Z95.0 Presence of cardiac pacemaker; Z85.118 Personal history of other malignant neoplasm of bronchus and lung; N40.1 Benign prostatic hyperplasia with lower urinary tract symptoms; R33.8 Other retention of urine; R41.82 Altered mental status, unspecified; T40.605A Adverse effect of unspecified narcotics, initial encounter; Z79.01 Long term (current) use of anticoagulants; Z86.711 Personal history of pulmonary embolism
CPT/HCPCS: 99223-AI; 99232-AI; 99239; A4315; A9284; C1776; J0690; J1170; J2250; J2270; J2300; J2405; J2704; J2765; J2795; J3010; J7120

== ENCOUNTER 2017-06-13 10:04 | Inpatient (IN) | payer MEDICARE, BC ==
[~2017-06-13] VITALS: Ht 177.8 cm; Wt 122.7 kg
[~2017-06-13 10:04] MED LIST changes: +BUMEX2 MG PO; +SYNTHROID0.112 MG/T PO; +ZANTAC 300300 MG PO
[2017-06-13 14:29] VITALS: BP 109/58; PULSE 62; TEMP 98.1
[2017-06-14 05:22] VITALS: BP 149/58; PULSE 58; TEMP 98.6
[2017-06-14 18:00] VITALS: BP 103/63; PULSE 64; TEMP 99
[2017-06-15 06:30] VITALS: BP 112/66; PULSE 59; TEMP 97.2
[2017-06-15 17:39] VITALS: BP 117/79; PULSE 46; TEMP 98.1
[2017-06-16 04:40] VITALS: BP 124/57; PULSE 58; TEMP 99
[2017-06-16 06:34] LABS: BASO # 0.1 (0.0-0.2); BASO % 0.4 % (0.0-2.0); EOS # 1.3 (0.0-0.7); EOS % 11.5 % (0-4.0); GRAN # 7.3 (1.4-6.5); GRAN % 64.1 % (42.2-75.2); LYMPH # 1.6 (1.2-3.4); LYMPH % 13.6 % (20.0-51.0); MEAN CELL VOLUME 103 fl (80.0-100.0); MEAN CORPUSCULAR HGB CONC 33 g/dl (33.0-37.0); MEAN PLATELET VOLUME 11.8 fl (7.4-10.4); MONO # 1.1 (0.1-0.6); PLATELET COUNT 243 K/mm3 (130-400); RED BLOOD COUNT 3.14 M/mm3 (4.20-5.60); REDCELL DISTRIBUTION WIDTH-CV 14.9 % (11.5-14.5); WHITE BLOOD COUNT 11.4 K/mm3 (4.8-10.8)
[2017-06-16 06:38] LABS: HEMATOCRIT 32.3 % (42.0-52.0); HEMOGLOBIN 10.7 g/dl (13.5-18.0); MEAN CORPUSCULAR HEMOGLOBIN 34 pg (27.0-31.0)
[2017-06-16 06:55] LABS: CALCIUM 8.6 mg/dL (8.4-10.2); CREATININE, serum 0.91 mg/dL (0.66-1.25); MAGNESIUM 1.9 mg/dL (1.6-2.3); POTASSIUM 3.6 mmol/L (3.4-5.0)
[2017-06-16 18:19] VITALS: BP 153/71; PULSE 74; TEMP 98.8
[2017-06-17 04:51] VITALS: BP 117/59; PULSE 54; TEMP 98.5
[2017-06-17 17:46] VITALS: BP 104/68; PULSE 72; TEMP 99
[2017-06-18 05:06] VITALS: BP 122/87; PULSE 67; TEMP 98.3
[2017-06-18 11:07] VITALS: BP 117/73; PULSE 65; TEMP 102.7
[2017-06-18 11:57] LABS: PH 6 (5-8); SQUAMOUS EPITHELIAL None Seen /hpf; URINE APPEARANCE Clear; URINE BACTERIA Rare /hpf; URINE BILIRUBIN Negative (NEGATIVE); URINE BLOOD 2+ (NEGATIVE); URINE COLOR Yellow; URINE GLUCOSE Negative (NEGATIVE); URINE KETONE Negative (NEGATIVE); URINE UROBILINOGEN Negative (NEGATIVE)
[2017-06-18 18:38] VITALS: BP 127/61; PULSE 67; TEMP 99.7
[2017-06-19 04:20] VITALS: BP 103/52; PULSE 71; TEMP 100.1
[2017-06-19 06:12] LABS: ADD PATHOLOGY DIFF REVIEW NO
[2017-06-19 06:18] LABS: MEAN CELL VOLUME 103 fl (80.0-100.0); MEAN CORPUSCULAR HGB CONC 33 g/dl (33.0-37.0); MEAN PLATELET VOLUME 10.8 fl (7.4-10.4); PLATELET COUNT 274 K/mm3 (130-400); RED BLOOD COUNT 2.84 M/mm3 (4.20-5.60)
[2017-06-19 06:28] LABS: HEMATOCRIT 29.2 % (42.0-52.0); HEMOGLOBIN 9.6 g/dl (13.5-18.0); MEAN CORPUSCULAR HEMOGLOBIN 34 pg (27.0-31.0); WHITE BLOOD COUNT 23.2 K/mm3 (4.8-10.8)
[2017-06-19 06:33] LABS: ADJUSTED CALCIUM 9.1 mg/dL (8.4-10.2); BILIRUBIN,TOTAL 0.9 mg/dL (0.0-1.0); CALCIUM 8.3 mg/dL (8.4-10.2); CREATININE, serum 1.03 mg/dL (0.66-1.25); MAGNESIUM 1.9 mg/dL (1.6-2.3); POTASSIUM 3.8 mmol/L (3.4-5.0)
[2017-06-19 07:50] VITALS: TEMP 98.2
[2017-06-19 07:53] LABS: BAND 11 % (0-10); EOSINOPHIL 3 % (0-4); NEUTROPHILS 65 % (42.0-75.2); PLATELET ESTIMATE NORMAL (NORMAL); TOTAL CELLS COUNTED 100
[2017-06-19 14:43] VITALS: BP 97/50
[2017-06-19 16:54] VITALS: BP 101/55; PULSE 61; TEMP 97.8
[2017-06-20 06:00] VITALS: BP 117/63; PULSE 60; TEMP 98.4
[2017-06-20 16:10] VITALS: BP 94/59; PULSE 64; TEMP 98.6
[2017-06-21 06:17] VITALS: BP 112/76; PULSE 63; TEMP 98.1
[2017-06-21 16:01] VITALS: BP 98/52; PULSE 76; TEMP 98.3
[2017-06-22 06:42] VITALS: BP 98/63; PULSE 62; TEMP 98.9
[2017-06-22 15:41] VITALS: BP 113/69; PULSE 64; TEMP 98.9
[2017-06-23 04:06] VITALS: BP 142/88; PULSE 64; TEMP 97.5
[2017-06-23 15:41] VITALS: BP 118/78; PULSE 65; TEMP 98.5
[2017-06-24 04:47] VITALS: BP 115/48; PULSE 68; TEMP 98.6
[2017-06-24 07:52] VITALS: BP 130/60
[2017-06-24 16:05] VITALS: BP 129/64; PULSE 69; TEMP 98.5
[2017-06-24 21:30] VITALS: BP 124/66; PULSE 62
[2017-06-25 04:40] VITALS: BP 123/74; PULSE 61; TEMP 98.4
[2017-06-25 18:47] VITALS: BP 124/78; PULSE 78; TEMP 97.6
[2017-06-26 04:30] VITALS: BP 111/55; PULSE 64; TEMP 97.5
[2017-06-26 16:37] VITALS: BP 111/60; PULSE 68; TEMP 98.1
[2017-06-27 04:32] VITALS: BP 114/86; PULSE 78; TEMP 97.3
[2017-06-27] MEDS ORDERED: TYLENOL 325MG325 MG PO (08:22)
== END 2017-06-27 13:15 | disposition home or self-care (01) | DRG 560 ==
LOC: UNDOADMIN 13:35
PROVIDERS: Internal Medicine
PROC: 02HV33Z Insertion of Infusion Device into Superior Vena Cava, Percutaneous Approach (ICD-10-PCS; principal; 2017-06-18)
DX: S72.011D Unspecified intracapsular fracture of right femur, subsequent encounter for closed fracture with routine healing (principal); N39.0 Urinary tract infection, site not specified; I50.32 Chronic diastolic (congestive) heart failure; I69.351 Hemiplegia and hemiparesis following cerebral infarction affecting right dominant side; Z68.41 Body mass index [BMI] 40.0-44.9, adult; B95.2 Enterococcus as the cause of diseases classified elsewhere; W01.0XXD Fall on same level from slipping, tripping and stumbling without subsequent striking against object, subsequent encounter; I11.0 Hypertensive heart disease with heart failure; I25.10 Atherosclerotic heart disease of native coronary artery without angina pectoris; J44.9 Chronic obstructive pulmonary disease, unspecified; Z95.1 Presence of aortocoronary bypass graft; Z95.0 Presence of cardiac pacemaker; Z85.118 Personal history of other malignant neoplasm of bronchus and lung; E66.01 Morbid (severe) obesity due to excess calories
CPT/HCPCS: 99222-AI; 99232-AI; 99233-AI; 99239; C1751; J0696; J1644; J1885; J3420; J7030

== ENCOUNTER 2017-07-12 14:40 | Inpatient (IN) | payer MEDICARE, BC ==
[~2017-07-12] VITALS: Ht 180.3 cm; Wt 112.0 kg
[2017-07-12] MEDS ORDERED: MSIR30 MG PO (14:51)
[2017-07-12] MEDS ORDERED: BUMEX2 MG PO (15:08)
[2017-07-12] MEDS ORDERED: IMDUR 60MG60 MG/TAB PO (15:15)
[2017-07-12 15:51] LABS: BASO # 0.1 (0.0-0.2); BASO % 0.9 % (0.0-2.0); EOS # 1.2 (0.0-0.7); EOS % 14.4 % (0-4.0); GRAN # 4.1 (1.4-6.5); GRAN % 47.6 % (42.2-75.2); LYMPH # 1.9 (1.2-3.4); LYMPH % 22.1 % (20.0-51.0); MEAN CELL VOLUME 103 fl (80.0-100.0); MEAN CORPUSCULAR HGB CONC 32 g/dl (33.0-37.0); MEAN PLATELET VOLUME 10.3 fl (7.4-10.4); MONO # 1.2 (0.1-0.6); MONO % 14.6 % (1.7-9.3); PLATELET COUNT 231 K/mm3 (130-400); REDCELL DISTRIBUTION WIDTH-CV 14.7 % (11.5-14.5); WHITE BLOOD COUNT 8.5 K/mm3 (4.8-10.8)
[2017-07-12 15:54] LABS: HEMATOCRIT 34.9 % (42.0-52.0); HEMOGLOBIN 11.2 g/dl (13.5-18.0); MEAN CORPUSCULAR HEMOGLOBIN 33 pg (27.0-31.0)
[2017-07-12 15:56] LABS: INR 1.6 (0.8-3.0); PROTHROMBIN TIME 18.2 SECONDS (9.7-12.8)
[2017-07-12 15:59] LABS: PARTIAL THROMBOPLASTIN TIME 31.7 SECONDS (26.0-37.0)
[2017-07-12 16:01] LABS: ADJUSTED CALCIUM 9.3 mg/dL (8.4-10.2); ALANINE AMINOTRANSFERASE 22 U/L (21-72); ALBUMIN 3.6 gm/dL (3.5-5.0); ALKALINE PHOSPHATASE 148 U/L (50-136); ANION GAP 11 mmol/L (7-16); BILIRUBIN,TOTAL 0.7 mg/dL (0.0-1.0); BLOOD UREA NITROGEN 8 mg/dL (9-20); CARBON DIOXIDE 29 mmol/L (22-30); CHLORIDE 95 mmol/L (98-107); CREATININE, serum 0.84 mg/dL (0.66-1.25); GLUCOSE 113 mg/dL (74-106); POTASSIUM 4.1 mmol/L (3.4-5.0); SODIUM 136 mmol/L (137-145); TOTAL PROTEIN 6.9 gm/dL (6.4-8.2)
[2017-07-12 16:12] LABS: TROPONIN-I < 0.012 ng/mL (0.000-0.034)
[2017-07-12 17:07] VITALS: BP 114/62; PULSE 90; TEMP 97.4
[2017-07-12 23:07] VITALS: BP 127/52; PULSE 60; TEMP 97
[2017-07-13 04:24] VITALS: BP 112/74; PULSE 65; TEMP 98.2
[2017-07-13 06:28] LABS: BASO # 0.1 (0.0-0.2); BASO % 0.8 % (0.0-2.0); EOS # 1.3 (0.0-0.7); EOS % 13.5 % (0-4.0); GRAN # 5.2 (1.4-6.5); GRAN % 53.1 % (42.2-75.2); HEMATOCRIT 34.5 % (42.0-52.0); LYMPH # 1.8 (1.2-3.4); LYMPH % 18.4 % (20.0-51.0); MEAN CELL VOLUME 104 fl (80.0-100.0); MEAN CORPUSCULAR HEMOGLOBIN 33 pg (27.0-31.0); MEAN CORPUSCULAR HGB CONC 32 g/dl (33.0-37.0); MEAN PLATELET VOLUME 10.7 fl (7.4-10.4); MONO # 1.4 (0.1-0.6); MONO % 13.9 % (1.7-9.3); PLATELET COUNT 236 K/mm3 (130-400); RED BLOOD COUNT 3.31 M/mm3 (4.20-5.60); REDCELL DISTRIBUTION WIDTH-CV 14.9 % (11.5-14.5); WHITE BLOOD COUNT 9.7 K/mm3 (4.8-10.8)
[2017-07-13 06:38] LABS: CALCIUM 8.6 mg/dL (8.4-10.2); CREATININE, serum 1.04 mg/dL (0.66-1.25); POTASSIUM 3.9 mmol/L (3.4-5.0)
[2017-07-13 07:49] LABS: PH 5 (5-8); URINE APPEARANCE Clear; URINE COLOR Yellow
[2017-07-13 07:50] LABS: URINE BILIRUBIN Negative (NEGATIVE); URINE BLOOD 2+ (NEGATIVE); URINE GLUCOSE Negative (NEGATIVE); URINE KETONE Negative (NEGATIVE); URINE UROBILINOGEN Negative (NEGATIVE)
[2017-07-13 07:54] LABS: SQUAMOUS EPITHELIAL None Seen /hpf; URINE BACTERIA None Seen /hpf; URINE RBC 20-50 /hpf
[2017-07-13 09:31] VITALS: BP 154/79; PULSE 72; TEMP 98.1
[2017-07-13 13:12] VITALS: BP 113/76; PULSE 61; TEMP 98.3
[2017-07-13 17:15] VITALS: BP 113/58; PULSE 69; TEMP 98.2
[2017-07-13 20:00] VITALS: BP 122/74; PULSE 70; TEMP 98
[2017-07-14] VITALS (11 sets, daily range): BP systolic 105–146; BP diastolic 51–97; PULSE 55–68; TEMP 98.2–101.9
[2017-07-15] VITALS (10 sets, daily range): BP systolic 122–138; BP diastolic 64–86; PULSE 59–62; TEMP 67.2–98.5
[2017-07-15] MEDS ORDERED: FLOVENT 44MCG I13 GM IH (14:19)
[2017-07-16] VITALS (14 sets, daily range): BP systolic 102–133; BP diastolic 54–84; PULSE 58–68; TEMP 97.3–98.5
[2017-07-16 07:13] LABS: HEMATOCRIT 34.5 % (42.0-52.0); HEMOGLOBIN 11.2 g/dl (13.5-18.0)
[2017-07-16 07:20] LABS: INR 1.3 (0.8-3.0)
[2017-07-16 07:30] LABS: ADJUSTED CALCIUM 9.7 mg/dL (8.4-10.2); ALBUMIN 3.3 gm/dL (3.5-5.0); BILIRUBIN,TOTAL 0.8 mg/dL (0.0-1.0); CALCIUM 9.1 mg/dL (8.4-10.2); CREATININE, serum 0.99 mg/dL (0.66-1.25); POTASSIUM 4.9 mmol/L (3.4-5.0); TOTAL PROTEIN 6.6 gm/dL (6.4-8.2)
[2017-07-17 04:09] VITALS: BP 120/45; PULSE 77; TEMP 99.6
[2017-07-17 07:53] LABS: CALCIUM 8.5 mg/dL (8.4-10.2); CREATININE, serum 0.99 mg/dL (0.66-1.25); POTASSIUM 4.7 mmol/L (3.4-5.0)
[2017-07-17 08:04] LABS: BASO % 0.3 % (0.0-2.0); EOS # 1.2 (0.0-0.7); EOS % 8.5 % (0-4.0); GRAN # 9.5 (1.4-6.5); GRAN % 69.6 % (42.2-75.2); LYMPH # 1.7 (1.2-3.4); LYMPH % 12.3 % (20.0-51.0); MEAN CELL VOLUME 105 fl (80.0-100.0); MEAN CORPUSCULAR HGB CONC 32 g/dl (33.0-37.0); MEAN PLATELET VOLUME 11.3 fl (7.4-10.4); MONO # 1.2 (0.1-0.6); MONO % 8.9 % (1.7-9.3); PLATELET COUNT 203 K/mm3 (130-400); RED BLOOD COUNT 2.95 M/mm3 (4.20-5.60); WHITE BLOOD COUNT 13.6 K/mm3 (4.8-10.8)
[2017-07-17 08:07] LABS: HEMATOCRIT 30.9 % (42.0-52.0); HEMOGLOBIN 9.8 g/dl (13.5-18.0); MEAN CORPUSCULAR HEMOGLOBIN 33 pg (27.0-31.0)
[2017-07-17 15:09] VITALS: BP 117/57; PULSE 59; TEMP 98.2
[2017-07-17 17:50] VITALS: BP 106/78; PULSE 94; TEMP 97.9
[2017-07-17 21:57] VITALS: BP 109/76; PULSE 83; TEMP 98.4
[2017-07-18] VITALS (7 sets, daily range): BP systolic 111–146; BP diastolic 50–97; PULSE 58–61; TEMP 97.4–98.5
[2017-07-18 06:57] LABS: HEMATOCRIT 36.1 % (42.0-52.0); HEMOGLOBIN 11.5 g/dl (13.5-18.0)
[2017-07-19 03:31] VITALS: BP 121/95; PULSE 63; TEMP 98.3
[2017-07-19 04:52] VITALS: BP 146/85; PULSE 60; TEMP 98.7
[2017-07-19 09:33] VITALS: BP 99/58; PULSE 70; TEMP 98.8
[2017-07-19 13:34] VITALS: BP 136/68; PULSE 67; TEMP 98.2
[2017-07-19 17:28] VITALS: BP 103/52; PULSE 60; TEMP 98
[2017-07-19 22:52] VITALS: BP 112/58; PULSE 63; TEMP 97.6
[2017-07-20 01:31] VITALS: BP 132/90; PULSE 62; TEMP 98.4
[2017-07-20 06:25] VITALS: BP 109/56; PULSE 65; TEMP 98.7
[2017-07-20 09:52] VITALS: BP 102/46; PULSE 62; TEMP 98.8
[2017-07-20 13:05] VITALS: BP 117/71; PULSE 117; TEMP 98.8
[2017-07-20 17:11] VITALS: BP 112/49; PULSE 63; TEMP 98.2
[2017-07-20 22:14] VITALS: BP 112/56; PULSE 60; TEMP 98.5
[2017-07-21 02:28] VITALS: BP 109/53; PULSE 61; TEMP 98.8
[2017-07-21 06:03] VITALS: BP 117/47; PULSE 61; TEMP 98.8
[2017-07-21] MEDS ORDERED: VITAMINC500CH PO (08:28)
[2017-07-21] MEDS ORDERED: VITAMIN B COMPL1 T16 PO (08:28)
[2017-07-21] MEDS ORDERED: OYSCO 500500 M1 PO (08:29)
[2017-07-21] MEDS ORDERED: NORCO 325 MG-51 TAB PO (09:01)
[2017-07-21 10:00] VITALS: BP 100/38; PULSE 67; TEMP 100.3
[2017-07-21 10:34] VITALS: BP 117/47; PULSE 61; TEMP 98.8
== END 2017-07-21 11:30 | DRG 467 ==
LOC: COL.ER 14:40 → SURG 15:28
PROVIDERS: Emergency Medicine; Family Medicine; Nurse Anesthetist, Certified Registered; Nurse Practitioner; Nurse Practitioner Family; Orthopaedic Surgery
PROC: 0SP90JZ Removal of Synthetic Substitute from Right Hip Joint, Open Approach (ICD-10-PCS; 2017-07-16)
PROC: 0QS604Z Reposition Right Upper Femur with Internal Fixation Device, Open Approach (ICD-10-PCS; 2017-07-16)
PROC: 0SR90JZ Replacement of Right Hip Joint with Synthetic Substitute, Open Approach (ICD-10-PCS; principal; 2017-07-16 13:00)
DX: S72.001A Fracture of unspecified part of neck of right femur, initial encounter for closed fracture (principal); M97.01XA Periprosthetic fracture around internal prosthetic right hip joint, initial encounter; I50.32 Chronic diastolic (congestive) heart failure; I69.351 Hemiplegia and hemiparesis following cerebral infarction affecting right dominant side; Z66 Do not resuscitate; W18.30XA Fall on same level, unspecified, initial encounter; I11.0 Hypertensive heart disease with heart failure; I25.10 Atherosclerotic heart disease of native coronary artery without angina pectoris; Z95.1 Presence of aortocoronary bypass graft; J44.9 Chronic obstructive pulmonary disease, unspecified; N40.1 Benign prostatic hyperplasia with lower urinary tract symptoms; R33.8 Other retention of urine; D51.9 Vitamin B12 deficiency anemia, unspecified; I48.91 Unspecified atrial fibrillation; Z79.01 Long term (current) use of anticoagulants
CPT/HCPCS: 99223-AI; 99231-AI; 99232-AI; 99239; A4315; A9284; C1713; C1776; J0690; J1650; J1885; J2250; J2270; J2370; J2405; J2704; J3010; J7070; J7120

== ENCOUNTER → 2017-08-13 | Outpatient (REF) ==
[~2017-08-13] MED LIST changes: +ALDACTONE50 MG PO; +AMPICILLIN 22 G/VIAL IV; +DEMADEX100 MG PO; +DULCOLAX S10 MG/SUPP RC; +HEPARIN LOCK FLU5 M1 IV; +MAG-OX 400400 MG/TAB PO; +MILK OF MA400 MG/52 PO; +MS CONTIN 330 MG/TAB PO; +NORCO 325 MG-7.1 TAB PO; +NS INT FLUSH 1010 ML IV; +OYSCO 500500 M1 PO; +VANCOCIN HCL1 GM IV; +VITAMIN B COMPL1 T16 PO; +VITAMINC500CH PO
== END ==
LOC: ZLAB.WCH 08:40
DX: Z01.89 Encounter for other specified special examinations (principal)

== ENCOUNTER → 2017-08-18 | Outpatient (REF) ==
[~2017-08-18] MED LIST changes: +B-121000 MCG PO; +CEPACOL SORE TH1 LO8 MM; +FERROUS GL325 MG/TAB PO; +FLEET ENEM1 BOT/133 RC; +PROBIOTIC GOLD1 EACH PO
== END ==
LOC: ZAIV 08-14 06:10
DX: Z02.89 Encounter for other administrative examinations (principal)

== ENCOUNTER 2017-08-19 09:00 | Emergency (ER) | payer MEDICARE, BC ==
[~2017-08-19] VITALS: Ht 180.3 cm; Wt 129.1 kg
[~2017-08-19 09:00] MED LIST changes: -B-121000 MCG PO; -CEPACOL SORE TH1 LO8 MM; -FERROUS GL325 MG/TAB PO; -FLEET ENEM1 BOT/133 RC; -PROBIOTIC GOLD1 EACH PO
[2017-08-19] MEDS ORDERED: ALDACTONE50 MG PO (11:35)
[2017-08-19] MEDS ORDERED: PROBIOTIC GOLD1 EACH PO (11:35)
[2017-08-19] MEDS ORDERED: ASPIRIN 32325 MG/TAB PO (11:36)
[2017-08-19] MEDS ORDERED: CEPACOL SORE TH1 LO8 MM (11:36)
[2017-08-19] MEDS ORDERED: CORDARONE200 MG/TAB PO (11:36)
[2017-08-19] MEDS ORDERED: B-121000 MCG PO (11:37)
[2017-08-19] MEDS ORDERED: COREG 6.256.25 MG/TA PO (11:37)
[2017-08-19] MEDS ORDERED: DEMADEX100 MG PO (11:38)
[2017-08-19] MEDS ORDERED: DULCOLAX S10 MG/SUPP RC (11:45)
[2017-08-19] MEDS ORDERED: ELIQUIS 5MG PO (11:47)
[2017-08-19] MEDS ORDERED: FLOMAX 0.40.4 MG/CAP PO (11:49)
[2017-08-19] MEDS ORDERED: FERROUS GL325 MG/TAB PO (11:49)
[2017-08-19] MEDS ORDERED: FLEET ENEM1 BOT/133 RC (11:49)
[2017-08-19] MEDS ORDERED: FLOVENT 44MCG I13 GM IH (11:50)
[2017-08-19] MEDS ORDERED: LYRICA 100MG C100 M1 PO (11:51)
[2017-08-19] MEDS ORDERED: IMDUR 60MG60 MG/TAB PO (11:51)
[2017-08-19] MEDS ORDERED: SLOW-MAG 6464 MG/TAB PO (11:52)
[2017-08-19 11:58] VITALS: BP 116/74; PULSE 66
== END 2017-08-19 12:00 | disposition home or self-care (01) ==
LOC: COL.ER 09:00
DX: Z45.2 Encounter for adjustment and management of vascular access device (principal); I10 Essential (primary) hypertension; Z79.82 Long term (current) use of aspirin
CPT/HCPCS: C1751; C1894

== ENCOUNTER → 2017-08-25 | Outpatient (REF) ==
[~2017-08-25] MED LIST changes: +B-121000 MCG PO; +CEPACOL SORE TH1 LO8 MM; +FERROUS GL325 MG/TAB PO; +FLEET ENEM1 BOT/133 RC; +PROBIOTIC GOLD1 EACH PO
[2017-08-25 09:24] LABS: C-REACTIVE PROTEIN 4.7 mg/dL (0.0-0.9)
[2017-08-25 09:40] LABS: VANCOMYCIN TROUGH 48.9 ug/mL (7.00-20.00)
== END ==
LOC: ZLAB.WCH 08:46
PROVIDERS: Family Medicine
DX: Z01.89 Encounter for other specified special examinations (principal)

== ENCOUNTER → 2017-08-26 | Outpatient (REF) | LOC: ZLAB.WCH 08:47 | DX: Z01.89 Encounter for other specified special examinations (principal) ==

== ENCOUNTER → 2017-08-27 | Outpatient (REF) | LOC: ZCOL.LAB 09:09 | DX: Z01.89 Encounter for other specified special examinations (principal) ==

== ENCOUNTER → 2017-08-29 | Outpatient (REF) ==
[2017-08-29 09:24] LABS: VANCOMYCIN TROUGH 14.21 ug/mL (7.00-20.00)
[2017-08-29 13:59] LABS: CREATININE, serum 2.16 mg/dL (0.66-1.25)
== END ==
LOC: ZLAB.WCH 08:59
PROVIDERS: Specialist
DX: Z01.89 Encounter for other specified special examinations (principal)

== ENCOUNTER → 2017-09-01 | Outpatient (REF) ==
[2017-09-01 10:18] LABS: C-REACTIVE PROTEIN 4.3 mg/dL (0.0-0.9)
[2017-09-01 10:19] LABS: VANCOMYCIN TROUGH 17.08 ug/mL (7.00-20.00)
== END ==
LOC: ZLAB.WCH 09:40
PROVIDERS: Family Medicine
DX: Z01.89 Encounter for other specified special examinations (principal)

== ENCOUNTER 2017-11-06 16:38 | Emergency (ER) | payer MEDICARE, BC ==
[~2017-11-06] VITALS: Ht 177.8 cm; Wt 113.6 kg
[2017-11-06 16:40] VITALS: TEMP 97.2
[2017-11-06 17:15] LABS: BASO # 0.1 (0.0-0.2); BASO % 0.5 % (0.0-2.0); EOS # 0.5 (0.0-0.7); EOS % 3.7 % (0-4.0); GRAN # 9.5 (1.4-6.5); GRAN % 74.7 % (42.2-75.2); LYMPH # 1.3 (1.2-3.4); MEAN CELL VOLUME 103 fl (80.0-100.0); MEAN CORPUSCULAR HGB CONC 31 g/dl (33.0-37.0); MEAN PLATELET VOLUME 11.1 fl (7.4-10.4); MONO # 1.4 (0.1-0.6); MONO % 10.8 % (1.7-9.3); PLATELET COUNT 210 K/mm3 (130-400); RED BLOOD COUNT 3.04 M/mm3 (4.20-5.60); WHITE BLOOD COUNT 12.7 K/mm3 (4.8-10.8)
[2017-11-06 17:16] LABS: HEMATOCRIT 31.3 % (42.0-52.0); HEMOGLOBIN 9.7 g/dl (13.5-18.0); MEAN CORPUSCULAR HEMOGLOBIN 32 pg (27.0-31.0)
[2017-11-06 17:17] LABS: INR 1.5 (0.8-3.0)
[2017-11-06 17:20] LABS: PARTIAL THROMBOPLASTIN TIME 30.8 SECONDS (26.0-37.0)
[2017-11-06 17:22] LABS: ADJUSTED CALCIUM 8.5 mg/dL (8.4-10.2); ALANINE AMINOTRANSFERASE 24 U/L (21-72); ALBUMIN 4.6 gm/dL (3.5-5.0); ALKALINE PHOSPHATASE 211 U/L (50-136); ANION GAP 11 mmol/L (7-16); BLOOD UREA NITROGEN 31 mg/dL (9-20); CARBON DIOXIDE 26 mmol/L (22-30); CHLORIDE 97 mmol/L (98-107); CREATININE, serum 2.51 mg/dL (0.66-1.25); GLUCOSE 153 mg/dL (74-106); SODIUM 134 mmol/L (137-145); TOTAL PROTEIN 8.1 gm/dL (6.4-8.2)
[2017-11-06] MEDS ORDERED: SYNTHROID0.112 MG/T PO (17:29)
[2017-11-06] MEDS ORDERED: CALCIUM CARB500 MG PO (17:30)
[2017-11-06] MEDS ORDERED: K-DUR20 MEQ PO (17:30)
[2017-11-06] MEDS ORDERED: MIRTAZAPINE7.5 MG PO (17:31)
[2017-11-06] MEDS ORDERED: ZANTAC 300300 MG PO (17:31)
[2017-11-06] MEDS ORDERED: VITAMIN C500 MG PO (17:33)
[2017-11-06] MEDS ORDERED: MAG-OX 400400 MG/TAB PO (17:33)
[2017-11-06] MEDS ORDERED: MS CONTIN 330 MG/TAB PO (17:34)
[2017-11-06] MEDS ORDERED: STIOLTO RESPIMAT4 GM IH (17:35)
[2017-11-06] MEDS ORDERED: TYLENOL 325MG325 MG PO (17:35)
[2017-11-06 17:36] LABS: POTASSIUM 6.3 mmol/L (3.4-5.0)
[2017-11-06] MEDS ORDERED: PROAIR HFA0.09 MG/AC IH (17:36)
[2017-11-06] MEDS ORDERED: NITROSTAT0.4 MG/TAB SL (17:37)
[2017-11-06] MEDS ORDERED: MULTIPLE VITAMI1 CAP PO (17:37)
[2017-11-06 17:42] LABS: ARTERIAL BLD GAS O2 SATURATION 95.1 % (92-100); ARTERIAL BLD GAS TCO2 CT 28.7; ARTERIAL BLOOD GAS BASE EXCESS -2.5 (-2-2); ARTERIAL BLOOD GAS HCO3 26.6 meq/L (22-26); ARTERIAL BLOOD GAS PHT 7.21 C (7.35-7.45); ARTERIAL BLOOD GAS PO2 91.1 mmHg (80-100); ARTERIAL BLOOD GAS PO2T 91.1 (80-100); ARTERIAL BLOOD GAS pH 7.21 (7.35-7.45); OXYHEMOGLOBIN 93.9 %
[2017-11-06 17:43] LABS: ATS? YES
[2017-11-06 17:58] LABS: B-TYPE NATRIURETIC PEPTIDE 4070 pg/mL (0-125)
[2017-11-06 18:02] LABS: TROPONIN-I < 0.012 ng/mL (0.000-0.034)
[2017-11-06 19:22] VITALS: BP 131/79; PULSE 80
== END 2017-11-06 19:22 | disposition short-term general hospital (02) ==
LOC: COL.ER 16:38
PROVIDERS: Emergency Medicine
DX: E87.5 Hyperkalemia (principal); R55 Syncope and collapse; R06.89 Other abnormalities of breathing; I25.10 Atherosclerotic heart disease of native coronary artery without angina pectoris; I11.0 Hypertensive heart disease with heart failure; I50.9 Heart failure, unspecified; D64.9 Anemia, unspecified; J44.9 Chronic obstructive pulmonary disease, unspecified; E03.9 Hypothyroidism, unspecified; K21.9 Gastro-esophageal reflux disease without esophagitis; E78.5 Hyperlipidemia, unspecified; G47.33 Obstructive sleep apnea (adult) (pediatric); Z85.118 Personal history of other malignant neoplasm of bronchus and lung; Z95.5 Presence of coronary angioplasty implant and graft; Z95.0 Presence of cardiac pacemaker; Z86.73 Personal history of transient ischemic attack (TIA), and cerebral infarction without residual deficits; Z86.711 Personal history of pulmonary embolism; Z87.891 Personal history of nicotine dependence; Z87.81 Personal history of (healed) traumatic fracture; Z79.82 Long term (current) use of aspirin; W18.12XA Fall from or off toilet with subsequent striking against object, initial encounter
CPT/HCPCS: J1815; J1940

== ENCOUNTER 2018-03-02 15:04 | Outpatient (CLI) | payer MEDICARE, BC ==
[~2018-03-02] VITALS: Ht 172.7 cm; Wt 112.0 kg
[~2018-03-02 15:04] MED LIST changes: +CALCIUM CARB500 MG PO; +K-DUR20 MEQ PO; +PRINCIPEN500 MG PO
[2018-03-02 15:30] VITALS: BP 105/47; PULSE 63; TEMP 98.7
[2018-03-02] MEDS ORDERED: PRIL40 PO (15:32)
[2018-03-02] MEDS ORDERED: NEURONTIN300 MG/CAP PO (15:33)
[2018-03-02] MEDS ORDERED: ULTRAM 50MG TAB50 MG PO (15:35)
[2018-03-02] MEDS ORDERED: K-TAB20 PO (15:45)
[2018-03-02] MEDS ORDERED: BUMEX2 MG PO (15:46)
[2018-03-02] MEDS ORDERED: SYNTHROID0.125 MG/T PO (15:57)
[2018-03-02] MEDS ORDERED: DEMADEX 20MG20 M1 PO (16:00)
[2018-03-02] MEDS ORDERED: PRINIVIL2.5 MG PO (16:02)
[2018-03-02] MEDS ORDERED: PRINCIPEN500 MG PO (16:03)
== END 2018-03-02 16:47 | disposition home or self-care (01) ==
LOC: EUO 15:04
DX: M81.0 Age-related osteoporosis without current pathological fracture (principal)
CPT/HCPCS: J3489

== ENCOUNTER 2018-03-20 09:11 | Day surgery (SDC) | payer MEDICARE, BC ==
[~2018-03-20] VITALS: Ht 180.3 cm; Wt 117.3 kg
[~2018-03-20 09:11] MED LIST changes: +PRIL40 PO; +PRINIVIL2.5 MG PO; +SYNTHROID0.125 MG/T PO
[2018-03-20 10:07] VITALS: BP 128/82; PULSE 67; TEMP 98
[2018-03-20] MEDS ORDERED: FERROUS SU325 MG/TAB PO (10:17)
[2018-03-20 11:20] VITALS: BP 128/82; PULSE 71
[2018-03-20 11:35] VITALS: BP 124/75; PULSE 60
[2018-03-20 11:50] VITALS: BP 123/91; PULSE 61
[2018-03-20 12:05] VITALS: BP 137/68; PULSE 64
== END 2018-03-20 12:40 | disposition home or self-care (01) ==
LOC: SDCO 09:11
DX: K22.70 Barrett's esophagus without dysplasia (principal); K22.2 Esophageal obstruction; K21.0 Gastro-esophageal reflux disease with esophagitis; K44.9 Diaphragmatic hernia without obstruction or gangrene; D64.9 Anemia, unspecified; K59.00 Constipation, unspecified; I11.0 Hypertensive heart disease with heart failure; I50.9 Heart failure, unspecified; I25.2 Old myocardial infarction; I25.119 Atherosclerotic heart disease of native coronary artery with unspecified angina pectoris; J43.9 Emphysema, unspecified; I48.91 Unspecified atrial fibrillation; M19.90 Unspecified osteoarthritis, unspecified site; R19.7 Diarrhea, unspecified; F32.9 Major depressive disorder, single episode, unspecified; J44.9 Chronic obstructive pulmonary disease, unspecified; G47.33 Obstructive sleep apnea (adult) (pediatric); K21.9 Gastro-esophageal reflux disease without esophagitis; N40.0 Benign prostatic hyperplasia without lower urinary tract symptoms; Z79.82 Long term (current) use of aspirin; Z95.0 Presence of cardiac pacemaker; Z96.641 Presence of right artificial hip joint; Z90.2 Acquired absence of lung [part of]; Z86.73 Personal history of transient ischemic attack (TIA), and cerebral infarction without residual deficits; Z85.118 Personal history of other malignant neoplasm of bronchus and lung
CPT/HCPCS: OP; C1726; J2704; J7030

== ENCOUNTER → 2018-03-27 | Outpatient (CLI) | payer MEDICARE, BC | LOC: COL.VAS 07:25 | DX: R60.0 Localized edema (principal) ==

== ENCOUNTER 2018-04-01 05:27 | Day surgery (SDC) | payer MEDICARE, BC ==
[2018-04-01] VITALS (7 sets, daily range): BP systolic 129–154; BP diastolic 45–92; PULSE 59–87; TEMP 97.3–97.7
[~2018-04-01] VITALS: Ht 177.8 cm; Wt 118.4 kg
[2018-04-01 06:20] LABS: CALCIUM 8.6 mg/dL (8.4-10.2); CREATININE, serum 1.33 mg/dL (0.66-1.25); POTASSIUM 4.4 mmol/L (3.4-5.0)
[2018-04-01 08:20] LABS: BASO # 0.1 (0.0-0.2); BASO % 0.6 % (0.0-2.0); EOS # 0.8 (0.0-0.7); GRAN # 5.1 (1.4-6.5); GRAN % 61.2 % (42.2-75.2); LYMPH # 1.5 (1.2-3.4); LYMPH % 18.4 % (20.0-51.0); MEAN CELL VOLUME 105 fl (80.0-100.0); MEAN CORPUSCULAR HGB CONC 33 g/dl (33.0-37.0); MONO # 0.9 (0.1-0.6); MONO % 10.6 % (1.7-9.3); PLATELET COUNT 222 K/mm3 (130-400); RED BLOOD COUNT 2.47 M/mm3 (4.20-5.60); REDCELL DISTRIBUTION WIDTH-CV 12.5 % (11.5-14.5)
[2018-04-01 08:21] LABS: HEMATOCRIT 25.8 % (42.0-52.0); HEMOGLOBIN 8.5 g/dl (13.5-18.0); MEAN CORPUSCULAR HEMOGLOBIN 34 pg (27.0-31.0)
[2018-04-01 08:40] LABS: ERYTHROCYTE SEDIMENTATION RATE 29 mm/hr (0-30)
[2018-04-01 09:54] LABS: SYNOVIAL FL. MONONUCLEAR 18.5 % (0-75); SYNOVIAL FLUID RBC 12000 /mm3 (0-0); SYNOVIAL FLUID WBC 2142 /mm3 (200-600)
[2018-04-01 09:57] LABS: SYNOVIAL FLUID APPEARANCE CLOUDY; SYNOVIAL FLUID COLOR AMBER
[2018-04-01] MEDS ORDERED: NORCO 325 MG-7.1 TAB PO (11:37)
== END 2018-04-01 12:15 | disposition home or self-care (01) ==
LOC: SDCO 05:27
PROVIDERS: Nurse Anesthetist, Certified Registered; Orthopaedic Surgery
DX: M65.9 Synovitis and tenosynovitis, unspecified (principal); M17.11 Unilateral primary osteoarthritis, right knee; I48.91 Unspecified atrial fibrillation; I13.0 Hypertensive heart and chronic kidney disease with heart failure and stage 1 through stage 4 chronic kidney disease, or unspecified chronic kidney disease; N18.9 Chronic kidney disease, unspecified; I50.9 Heart failure, unspecified; I25.10 Atherosclerotic heart disease of native coronary artery without angina pectoris; D64.9 Anemia, unspecified; F41.9 Anxiety disorder, unspecified; J44.9 Chronic obstructive pulmonary disease, unspecified; K59.00 Constipation, unspecified; E78.00 Pure hypercholesterolemia, unspecified; G47.33 Obstructive sleep apnea (adult) (pediatric); G89.29 Other chronic pain; K21.9 Gastro-esophageal reflux disease without esophagitis; Z90.2 Acquired absence of lung [part of]; Z88.8 Allergy status to other drugs, medicaments and biological substances; Z91.018 Allergy to other foods; Z95.1 Presence of aortocoronary bypass graft; Z79.01 Long term (current) use of anticoagulants; Z86.73 Personal history of transient ischemic attack (TIA), and cerebral infarction without residual deficits; Z85.118 Personal history of other malignant neoplasm of bronchus and lung; Z82.49 Family history of ischemic heart disease and other diseases of the circulatory system; Z82.62 Family history of osteoporosis; Z82.61 Family history of arthritis; M23.41 Loose body in knee, right knee
CPT/HCPCS: J0690; J1100; J1170; J2405; J2704; J3010; J7120

== ENCOUNTER → 2018-04-16 | Outpatient (CLI) | payer MEDICARE, BC ==
[2018-04-16 15:16] LABS: BASO # 0.1 (0.0-0.2); BASO % 0.8 % (0.0-2.0); EOS # 0.7 (0.0-0.7); EOS % 7.2 % (0-4.0); GRAN # 6.2 (1.4-6.5); HEMOGLOBIN 10.4 g/dl (13.5-18.0); LYMPH # 1.6 (1.2-3.4); LYMPH % 16.8 % (20.0-51.0); MEAN CELL VOLUME 103 fl (80.0-100.0); MEAN CORPUSCULAR HEMOGLOBIN 34 pg (27.0-31.0); MEAN CORPUSCULAR HGB CONC 33 g/dl (33.0-37.0); MEAN PLATELET VOLUME 10.7 fl (7.4-10.4); MONO # 1.1 (0.1-0.6); PLATELET COUNT 256 K/mm3 (130-400); RED BLOOD COUNT 3.09 M/mm3 (4.20-5.60)
[2018-04-16 15:26] LABS: HEMATOCRIT 31.8 % (42.0-52.0)
[2018-04-16 15:28] LABS: CALCIUM 8.9 mg/dL (8.4-10.2); CREATININE, serum 1.35 mg/dL (0.66-1.25); POTASSIUM 4.4 mmol/L (3.4-5.0)
[2018-04-16 16:38] LABS: ERYTHROCYTE SEDIMENTATION RATE 35 mm/hr (0-30)
== END ==
LOC: COL.LAB 14:38
PROVIDERS: Orthopaedic Surgery
DX: Z47.89 Encounter for other orthopedic aftercare (principal)

== ENCOUNTER → 2018-09-08 | Outpatient (CLI) | payer MEDICARE, BC | LOC: COL.RAD 14:12 | DX: S72.491A Other fracture of lower end of right femur, initial encounter for closed fracture (principal); Z96.641 Presence of right artificial hip joint; Z98.1 Arthrodesis status ==

== ENCOUNTER 2019-07-15 12:19 | Emergency (ER) | payer MEDICARE, BC ==
[~2019-07-15] VITALS: Ht 175.3 cm; Wt 90.9 kg
[2019-07-15 12:38] VITALS: TEMP 97.9
[2019-07-15 15:54] LABS: BASO % 0.6 % (0.0-2.0); EOS # 0.3 (0.0-0.7); EOS % 4.9 % (0-4.0); GRAN # 4.7 (1.4-6.5); GRAN % 68.3 % (42.2-75.2); LYMPH % 14.9 % (20.0-51.0); MEAN CELL VOLUME 97 fl (80.0-100.0); MEAN CORPUSCULAR HGB CONC 32 g/dl (33.0-37.0); MONO # 0.8 (0.1-0.6); PLATELET COUNT 251 K/mm3 (130-400); RED BLOOD COUNT 2.91 M/mm3 (4.20-5.60); REDCELL DISTRIBUTION WIDTH-CV 12.9 % (11.5-14.5)
[2019-07-15 15:58] LABS: ALBUMIN 3.7 gm/dL (3.5-5.0); BILIRUBIN,TOTAL 0.6 mg/dL (0.0-1.0); C-REACTIVE PROTEIN 8.8 mg/dL (0.0-0.9); CREATININE, serum 1.14 (0.66-1.25); TOTAL PROTEIN 6.9 gm/dL (6.4-8.2)
[2019-07-15 16:03] LABS: HEMATOCRIT 28.2 % (42.0-52.0); HEMOGLOBIN 9.1 g/dl (13.5-18.0); MEAN CORPUSCULAR HEMOGLOBIN 31 pg (27.0-31.0)
[2019-07-15] MEDS ORDERED: DOXYCYCLINE 10100 MG PO (18:34)
[2019-07-15 18:48] VITALS: BP 101/55; PULSE 82
== END 2019-07-15 22:52 | disposition home or self-care (01) ==
LOC: COL.ER 12:19
PROVIDERS: Physician Assistant
DX: L03.116 Cellulitis of left lower limb (principal); I48.91 Unspecified atrial fibrillation; I10 Essential (primary) hypertension; I25.10 Atherosclerotic heart disease of native coronary artery without angina pectoris; Z79.01 Long term (current) use of anticoagulants; Z79.02 Long term (current) use of antithrombotics/antiplatelets; Z98.890 Other specified postprocedural states; Z95.5 Presence of coronary angioplasty implant and graft; Z86.711 Personal history of pulmonary embolism; Z86.718 Personal history of other venous thrombosis and embolism; Z86.73 Personal history of transient ischemic attack (TIA), and cerebral infarction without residual deficits; Z79.82 Long term (current) use of aspirin

== ENCOUNTER → 2019-07-21 | Outpatient (CLI) | payer MEDICARE, BC | LOC: COL.VAS 09:48 | DX: L03.116 Cellulitis of left lower limb (principal); I77.1 Stricture of artery ==

== ENCOUNTER → 2019-07-23 | Outpatient (CLI) | payer MEDICARE, BC | LOC: COL.RAD 09:22 | DX: L97.524 Non-pressure chronic ulcer of other part of left foot with necrosis of bone (principal); L03.116 Cellulitis of left lower limb; M19.072 Primary osteoarthritis, left ankle and foot | CPT/HCPCS: A9503 ==

== ENCOUNTER → 2019-10-01 | Outpatient (CLI) | payer MEDICARE, BC | LOC: MC.RAD 13:00 | DX: N63.20 Unspecified lump in the left breast, unspecified quadrant (principal) ==

== ENCOUNTER 2019-11-26 10:26 | Day surgery (SDC) | payer MEDICARE, BC ==
[~2019-11-26] VITALS: Ht 177.8 cm; Wt 99.6 kg
[2019-11-26 10:53] VITALS: BP 121/65; PULSE 84; TEMP 97.4
[2019-11-26] MEDS ORDERED: BUMEX 1MG TA1 MG/TA1 PO (11:05)
[2019-11-26] MEDS ORDERED: VITAMIN B12 681 TAB PO (11:07)
[2019-11-26] MEDS ORDERED: DEMADEX 20MG20 M1 PO (11:15)
[2019-11-26] MEDS ORDERED: ULTRAM 50MG TAB50 MG PO (11:17)
[2019-11-26] MEDS ORDERED: NEURONTIN600 MG/TAB PO (11:18)
[2019-11-26] MEDS ORDERED: METHADONE H10 MG/TAB PO (11:19)
[2019-11-26] MEDS ORDERED: ZANTAC 300300 MG PO (11:20)
[2019-11-26] MEDS ORDERED: VITAMIN C500 MG PO (11:21)
[2019-11-26] MEDS ORDERED: ALDACTONE 25MG25 M1 PO (11:22)
--- NOTE | 2019-11-26 11:22 | NUR ---
Initial visit; Patient in Procedure, Welder First Class extended greetings and God's blessings to patient's Caregiver and to patient as well. Caregiver thanked [employer]der First Class for offering God's blessings.
[2019-11-26] MEDS ORDERED: FLONASEALLERGY NS (11:23)
[2019-11-26] MEDS ORDERED: FLOVENT 44MCG I13 GM IH (11:24)
[2019-11-26] MEDS ORDERED: VITAMIN D3400 I1 PO (11:26)
[2019-11-26] MEDS ORDERED: GLYCOL PO (11:27)
[2019-11-26] MEDS ORDERED: FLEXERIL5 MG PO (11:28)
[2019-11-26] MEDS ORDERED: DESYREL 50MG50 MG PO (11:29)
[2019-11-26 11:45] VITALS: BP 113/64; PULSE 82; TEMP 97.9
--- NOTE | 2019-11-26 11:45 | NUR ---
TO BAY 8 PER CART FROM ENDOSCOPY. ALERT ORIENTED X3, TALKING TO STAFF AND FRIEND RADHA. AMBULATED WITH ASSIST TO RECLINER AND TOLERATED WELL.
[2019-11-26 12:00] VITALS: BP 113/69; PULSE 60
--- NOTE | 2019-11-26 12:00 | NUR ---
DR VASQUEZ INTO TALK WITH PATIENT AND HIS FRIEND RADHA. RECEIVED PEPSI
--- NOTE | 2019-11-26 12:15 | NUR ---
RECEIVED DISCHARGE INSTRUCTIONS AND VERBALIZED UNDERSTANDING. DISCONTINUED IV AND INT- CATHETER INTACT. PATIENT GETTING DRESSED.
--- NOTE | 2019-11-26 12:25 | NUR ---
DISCHARGED PER BY NURSING STAFF TO PRIVATE CAR IN CARE OF FRIEND RADHA.
== END 2019-11-26 12:29 | disposition home or self-care (01) ==
LOC: SDCO 10:26
DX: K22.70 Barrett's esophagus without dysplasia (principal); K22.2 Esophageal obstruction; K59.00 Constipation, unspecified; J43.9 Emphysema, unspecified; D64.9 Anemia, unspecified; I48.91 Unspecified atrial fibrillation; M19.90 Unspecified osteoarthritis, unspecified site; I25.10 Atherosclerotic heart disease of native coronary artery without angina pectoris; I25.2 Old myocardial infarction; I11.0 Hypertensive heart disease with heart failure; I50.9 Heart failure, unspecified; K21.9 Gastro-esophageal reflux disease without esophagitis; I25.5 Ischemic cardiomyopathy; G89.29 Other chronic pain; F32.9 Major depressive disorder, single episode, unspecified; Z88.8 Allergy status to other drugs, medicaments and biological substances; Z95.0 Presence of cardiac pacemaker; Z91.018 Allergy to other foods; Z79.82 Long term (current) use of aspirin; Z86.73 Personal history of transient ischemic attack (TIA), and cerebral infarction without residual deficits; G47.33 Obstructive sleep apnea (adult) (pediatric); Z86.718 Personal history of other venous thrombosis and embolism; Z86.711 Personal history of pulmonary embolism; Z85.118 Personal history of other malignant neoplasm of bronchus and lung
CPT/HCPCS: C1726; J2704; J7030

== ENCOUNTER 2020-07-18 10:59 | Outpatient (RCR) | payer MEDICARE, BC ==
[~2020-07-18 10:59] MED LIST changes: +BUMEX 1MG TA1 MG/TA1 PO; +FLEXERIL5 MG PO; +FLONASEALLERGY NS; +GLYCOL PO; +METHADONE H10 MG/TAB PO; +MULTIPLE VITAMI1 TA5 PO; +NEURONTIN600 MG/TAB PO; +VITAMIN B12 681 TAB PO; +VITAMIN D3400 I1 PO
[2020-07-28] MEDS ORDERED: GALZIN50 MG PO (09:18)
[2020-07-28] MEDS ORDERED: CYMBALTA 30MG30 MG PO (09:18)
[2020-07-28] MEDS ORDERED: LEVOXYL0.112 MG PO (09:19)
[2020-07-28] MEDS ORDERED: CALCIUM/MAGNESI1 T17 PO (09:23)
[2020-07-28] MEDS ORDERED: MELATONIN5 M1 SL (09:25)
[2020-07-28] MEDS ORDERED: PEPCID40 MG PO (09:26)
[2020-07-28] MEDS ORDERED: LOPRESSOR 225 MG/TAB PO (09:26)
[2020-07-28] MEDS ORDERED: DESYREL 100MG100 MG PO (09:27)
[2020-07-28] MEDS ORDERED: B-121000 MCG PO (09:29)
== END 2020-10-16 | disposition home or self-care (01) ==
LOC: WSST
DX: K22.2 Esophageal obstruction (principal); K21.9 Gastro-esophageal reflux disease without esophagitis; R13.10 Dysphagia, unspecified

== ENCOUNTER 2020-07-28 08:42 | Day surgery (SDC) | payer MEDICARE, BC ==
[~2020-07-28] VITALS: Ht 177.8 cm; Wt 96.8 kg
[2020-07-28 09:02] VITALS: BP 129/67; PULSE 75; TEMP 97.7
[2020-07-28] MEDS ORDERED: GALZIN50 MG PO (09:18)
[2020-07-28] MEDS ORDERED: CYMBALTA 30MG30 MG PO (09:18)
[2020-07-28] MEDS ORDERED: LEVOXYL0.112 MG PO (09:19)
[2020-07-28] MEDS ORDERED: CALCIUM/MAGNESI1 T17 PO (09:23)
[2020-07-28] MEDS ORDERED: MELATONIN5 M1 SL (09:25)
[2020-07-28] MEDS ORDERED: PEPCID40 MG PO (09:26)
[2020-07-28] MEDS ORDERED: LOPRESSOR 225 MG/TAB PO (09:26)
[2020-07-28] MEDS ORDERED: DESYREL 100MG100 MG PO (09:27)
[2020-07-28] MEDS ORDERED: B-121000 MCG PO (09:29)
[2020-07-28 10:55] VITALS: BP 97/63; PULSE 65
--- NOTE | 2020-07-28 10:55 | NUR ---
PATIENT TRANSPORTED PER CART ACCOMPANIED BY ENDO STAFF TO [facility]. PATIENT AMBULATED FROM CART TO CHAIR WITH STEADY GAIT. MONITORS REAPPLIED. VSS ON ROOM AIR. PATIENT ALERT AND TALKS WITH STAFF. VERBAL REPORT RECEIVED.
[2020-07-28 11:00] VITALS: BP 104/56; PULSE 62; TEMP 99
--- NOTE | 2020-07-28 11:03 | NUR ---
VSS. PATIENT EATS MUFFIN AND DRINKS COKE WITHOUT PROBLEMS. NO FAMILY IN ROOM. PATIENT DENIES DISCOMFORT AND NAUSEA.
[2020-07-28 11:15] VITALS: BP 115/64; PULSE 60
[2020-07-28 11:30] VITALS: BP 113/91; PULSE 60; TEMP 98.8
[2020-07-28 11:45] VITALS: BP 91/51; PULSE 62
--- NOTE | 2020-07-28 12:10 | NUR ---
PATIENT VERY SLOW TO DRESS. PATIENT DENIED NEEDING ASSISTANCE. DISCHARGE INSTRUCTIONS GIVEN VERBAL AND DISCHARGE PACKET PROVIDED. QUESTIONS ANSWERED AND PATIENT VOICED UNDERSTANDING. DISCHARGED PER WHEEL CHAIR ACCOMPANIED BY [facility] STAFF TO PRIVATE VECHILE. FRIEND -HECTOR DRIVING SUV.
== END 2020-07-28 12:10 | disposition home or self-care (01) ==
LOC: SDCO
DX: K57.30 Diverticulosis of large intestine without perforation or abscess without bleeding (principal); K92.1 Melena; I25.10 Atherosclerotic heart disease of native coronary artery without angina pectoris; I48.91 Unspecified atrial fibrillation; M19.90 Unspecified osteoarthritis, unspecified site; J43.9 Emphysema, unspecified; G47.33 Obstructive sleep apnea (adult) (pediatric); K21.9 Gastro-esophageal reflux disease without esophagitis; G89.29 Other chronic pain; E11.9 Type 2 diabetes mellitus without complications; Z20.828 Contact with and (suspected) exposure to other viral communicable diseases; Z88.8 Allergy status to other drugs, medicaments and biological substances; Z91.018 Allergy to other foods; Z86.73 Personal history of transient ischemic attack (TIA), and cerebral infarction without residual deficits; Z96.649 Presence of unspecified artificial hip joint; Z96.641 Presence of right artificial hip joint; Z95.1 Presence of aortocoronary bypass graft; Z99.81 Dependence on supplemental oxygen
CPT/HCPCS: J2704; J7030

== ENCOUNTER → 2020-08-01 | Outpatient (CLI) | payer MEDICARE, BC ==
[~2020-08-01] MED LIST changes: +CALCIUM/MAGNESI1 T17 PO; +DESYREL 100MG100 MG PO; +GALZIN50 MG PO; +LEVOXYL0.112 MG PO; +LOPRESSOR 225 MG/TAB PO; +MELATONIN5 M1 SL; +PEPCID40 MG PO
== END ==
LOC: COL.RAD 15:06
DX: K21.9 Gastro-esophageal reflux disease without esophagitis (principal); K22.2 Esophageal obstruction

== ENCOUNTER → 2020-12-06 | Outpatient (CLI) | payer MEDICARE, BC ==
[2020-12-06 17:43] LABS: TROPONIN-I < 0.012 ng/mL (0.000-0.035)
== END ==
LOC: ZCOL.LAB 16:07
PROVIDERS: Internal Medicine Interventional Cardiology
DX: I50.22 Chronic systolic (congestive) heart failure (principal)

== ENCOUNTER → 2020-12-07 | Outpatient (CLI) | payer MEDICARE, BC | LOC: COL.RAD 12:49 | DX: S22.42XA Multiple fractures of ribs, left side, initial encounter for closed fracture (principal); I51.7 Cardiomegaly; K21.9 Gastro-esophageal reflux disease without esophagitis | CPT/HCPCS: Q9967 ==

== ENCOUNTER → 2020-12-08 | Outpatient (CLI) | payer MEDICARE, BC | LOC: COL.RAD 07:53 | DX: S22.42XD Multiple fractures of ribs, left side, subsequent encounter for fracture with routine healing (principal); I51.7 Cardiomegaly; R14.3 Flatulence; Z98.890 Other specified postprocedural states | CPT/HCPCS: Q9967 ==

== ENCOUNTER → 2021-04-27 | Outpatient (CLI) | payer MEDICARE, BC ==
[~2021-04-27] MED LIST changes: +MELATONIN5 M1 PO; -MELATONIN5 M1 SL; +SEROQUEL 2525 MG/TAB PO; +TOPROL XL 25MG25 MG PO
== END ==
LOC: ZCOL.LAB 15:31
DX: I50.22 Chronic systolic (congestive) heart failure (principal); I48.19 Other persistent atrial fibrillation

== ENCOUNTER → 2021-05-21 | Outpatient (CLI) | payer MEDICARE, BC ==
[2021-05-21 10:26] LABS: CALCIUM 9.3 mg/dL (8.4-10.2); CREATININE, serum 1.4 (0.66-1.25)
== END ==
LOC: ZCOL.LAB 10:02
PROVIDERS: Internal Medicine Interventional Cardiology
DX: Z01.812 Encounter for preprocedural laboratory examination (principal)

== ENCOUNTER 2021-06-17 09:52 | Emergency (ER) | payer MEDICARE, BC ==
[~2021-06-17] VITALS: Ht 177.8 cm; Wt 104.5 kg
[2021-06-17 09:55] VITALS: TEMP 98.1
[2021-06-17 10:22] LABS: BASO % 0.5 % (0.0-2.0); EOS # 0.6 (0.0-0.7); EOS % 7.9 % (0-4.0); GRAN % 65.9 % (42.2-75.2); HEMOGLOBIN 10.4 g/dl (13.5-18.0); LYMPH % 12.9 % (20.0-51.0); MEAN CELL VOLUME 100 fl (80.0-100.0); MEAN CORPUSCULAR HEMOGLOBIN 33 pg (27.0-31.0); MEAN CORPUSCULAR HGB CONC 33 g/dl (33.0-37.0); MONO % 12.5 % (1.7-9.3); PLATELET COUNT 168 K/mm3 (130-400); REDCELL DISTRIBUTION WIDTH-CV 12.6 % (11.5-14.5)
[2021-06-17 10:39] LABS: ALANINE AMINOTRANSFERASE 13 U/L (4-49); ALBUMIN 3.8 gm/dL (3.5-5.0); ALKALINE PHOSPHATASE 100 U/L (50-136); ANION GAP 5 mmol/L (7-16); AST,SGOT 30 U/L (15-37); BILIRUBIN,TOTAL 0.6 mg/dL (0.0-1.0); BLOOD UREA NITROGEN 34 mg/dL (9-20); CALCIUM 9.4 mg/dL (8.4-10.2); CARBON DIOXIDE 29 mmol/L (22-30); CHLORIDE 106 mmol/L (98-107); CREATININE, serum 1.38 (0.66-1.25); GLUCOSE 112 mg/dL (74-106); POTASSIUM 4.3 mmol/L (3.4-5.0); SODIUM 140 mmol/L (137-145)
[2021-06-17 10:51] LABS: TROPONIN-I < 0.012 ng/mL (0.000-0.035)
[2021-06-17 14:20] VITALS: BP 146/80; PULSE 72
== END 2021-06-17 14:20 | disposition home or self-care (01) ==
LOC: COL.ER 09:52
PROVIDERS: Nurse Practitioner Primary Care
DX: R06.02 Shortness of breath (principal); M79.89 Other specified soft tissue disorders; I48.91 Unspecified atrial fibrillation; E11.9 Type 2 diabetes mellitus without complications; N40.0 Benign prostatic hyperplasia without lower urinary tract symptoms; J44.9 Chronic obstructive pulmonary disease, unspecified; I10 Essential (primary) hypertension; E78.5 Hyperlipidemia, unspecified; Z99.81 Dependence on supplemental oxygen; Z79.82 Long term (current) use of aspirin; Z79.01 Long term (current) use of anticoagulants; Z79.899 Other long term (current) drug therapy
CPT/HCPCS: J7030; Q9967

== ENCOUNTER → 2021-06-18 | Outpatient (CLI) | payer MEDICARE, BC | LOC: COL.VAS 10:30 | DX: M79.604 Pain in right leg (principal); M79.89 Other specified soft tissue disorders; R60.9 Edema, unspecified ==

== ENCOUNTER → 2021-10-08 | Outpatient (CLI) | payer MEDICARE, BC ==
[2021-10-08 17:09] LABS: CALCIUM 9.7 mg/dL (8.4-10.2); CREATININE, serum 1.32 mg/dL (0.72-1.25); POTASSIUM 4.1 mmol/L (3.5-4.5)
== END ==
LOC: ZCOL.LAB 16:29
PROVIDERS: Internal Medicine Interventional Cardiology
DX: Z01.812 Encounter for preprocedural laboratory examination (principal); I48.91 Unspecified atrial fibrillation

== ENCOUNTER → 2022-06-24 | Outpatient (CLI) | payer MEDICARE, BC | LOC: COL.RAD 14:30 | DX: S46.301A Unspecified injury of muscle, fascia and tendon of triceps, right arm, initial encounter (principal); X58.XXXA Exposure to other specified factors, initial encounter ==

== ENCOUNTER 2023-01-15 05:43 | Inpatient (IN) | payer MEDICARE, BC ==
[2023-01-15] VITALS (761 sets, daily range): BP systolic 59–114; BP diastolic 45–62; PULSE 89–100; TEMP 97.8; O2SAT 83–100
[~2023-01-15] VITALS: Ht 177.8 cm; Wt 108.9 kg
[2023-01-15 06:45] LABS: ARTERIAL BLD GAS O2 SATURATION 95.8 % (92-100); ARTERIAL BLD GAS TCO2 CT 19.2; ARTERIAL BLOOD GAS BASE EXCESS -9.1 (-2-2); ARTERIAL BLOOD GAS HCO3 17.9 meq/L (22-26); ARTERIAL BLOOD GAS PCO2 42.9 mmHg (35-45); ARTERIAL BLOOD GAS PO2 87.1 mmHg (80-100); ARTERIAL BLOOD GAS pH 7.24 (7.35-7.45)
[2023-01-15 07:30] LABS: MEAN CELL VOLUME 100 fl (80.0-100.0); MEAN CORPUSCULAR HEMOGLOBIN 33 pg (27-31); MEAN CORPUSCULAR HGB CONC 33 g/dl (33.0-37.0); PLATELET COUNT 155 K/mm3 (130-400); RED BLOOD COUNT 3.65 M/mm3 (4.20-5.60); REDCELL DISTRIBUTION WIDTH-CV 12.9 % (11.5-14.5)
[2023-01-15 07:31] LABS: ALBUMIN 4.1 gm/dL (3.4-4.8); BILIRUBIN,TOTAL 0.5 mg/dL (0.2-1.2); C-REACTIVE PROTEIN 4.18 mg/dL (0.00-0.50); CALCIUM 9.1 mg/dL (8.4-10.2); CREATININE, serum 4.01 mg/dL (0.72-1.25); POTASSIUM 4.5 mmol/L (3.5-4.5); TOTAL PROTEIN 7.4 gm/dL (6.2-8.1)
[2023-01-15 07:35] LABS: HEMATOCRIT 36.4 % (42.0-52.0)
[2023-01-15 07:49] LABS: BAND 17 % (0-10); EOSINOPHIL 1 % (0-4); LYMPHOCYTE 3 % (20.0-51.0); NEUTROPHILS 76 % (42.0-75.2); PLATELET ESTIMATE NORMAL (NORMAL)
[2023-01-15 07:57] LABS: COLLECTION METHOD CLEAN CATCH
[2023-01-15 08:06] LABS: TROPONIN-I 0.017 ng/mL (0.00-0.033)
[2023-01-15 08:09] LABS: SQUAMOUS EPITHELIAL None Seen /hpf (0-10); URINE BACTERIA Rare /hpf (NONE SEEN); URINE RBC 0-2 /hpf (0-2)
[2023-01-15 08:10] LABS: URINE APPEARANCE Clear (CLEAR/HAZY); URINE COLOR Yellow (YELLOW); URINE GLUCOSE TRACE (NEGATIVE); URINE KETONE Negative (NEGATIVE); URINE PROTEIN(semi-quant) Negative (NEGATIVE)
[2023-01-15 08:11] LABS: URINE BLOOD Negative (NEGATIVE); URINE NITRATE Negative (NEGATIVE); URINE UROBILINOGEN 0.2 E.U/dL (0.2-1.0)
--- NOTE | 2023-01-15 12:55 | NUR ---
PATIENT ARRIVED ON UNIT AT 0908 VIA STRETCHER ACCOMPANIED BY STRUCTURES ENGINEER. PT TRANSFERRED INTO ICU BED AND PLACED ON MONITORING. VITALS ASSESSED, PATIENT PLACED ON LEVOPHED PER ORDERS AND PROTOCOL. ASSESSMENT COMPLETED. BP STABILIZED. PATIENT IS CURRENTLY RESTING IN BED WITH BIPAP ON. PATIENT TOLERATING WELL. CALL LIGHT IN HAND.
[2023-01-15] MEDS ORDERED: ZYRTEC 10MG10 MG PO (15:25)
[2023-01-15] MEDS ORDERED: PRINIVIL2.5 MG PO (15:26)
--- NOTE | 2023-01-15 15:28 | NUR ---
Duty Officer met with Devi, Patients Agent for his AD who brought his AD paperwork and was able to report [employer] as his insurance.
[2023-01-15] MEDS ORDERED: LYRICA 150MG C150 MG PO (15:33)
[2023-01-15] MEDS ORDERED: BUMEX 1MG TA1 MG/TA1 PO (15:34)
[2023-01-15] MEDS ORDERED: ENTRESTO 49 MG1 EACH PO (15:34)
[2023-01-15] MEDS ORDERED: CREON 36000 PO (15:34)
[2023-01-15] MEDS ORDERED: DESYREL 100MG100 MG PO (15:35)
[2023-01-15] MEDS ORDERED: FARXIGA10 PO (15:35)
[2023-01-15] MEDS ORDERED: TIKOSYN0.25 MG PO (15:35)
[2023-01-15] MEDS ORDERED: VITAMIN B COMPL1 SGL PO (15:36)
[2023-01-15] MEDS ORDERED: CENTRUM SILVER1 CTB PO (15:36)
[2023-01-15] MEDS ORDERED: PEPCID40 MG PO (15:36)
[2023-01-15] MEDS ORDERED: MELATONIN5 M1 PO (15:37)
[2023-01-15] MEDS ORDERED: FENTANYL 25 MCG TD (15:38)
[2023-01-15 17:29] LABS: CALCIUM 7.7 mg/dL (8.4-10.2); CREATININE, serum 2.77 mg/dL (0.72-1.25); POTASSIUM 3.5 mmol/L (3.5-4.5)
[2023-01-15 17:55] LABS: ARTERIAL BLD GAS O2 SATURATION 98.2 % (92-100); ARTERIAL BLD GAS TCO2 CT 20.8; ARTERIAL BLOOD GAS BASE EXCESS -5.6 (-2-2); ARTERIAL BLOOD GAS HCO3 19.6 meq/L (22-26); ARTERIAL BLOOD GAS PCO2 37.4 mmHg (35-45); ARTERIAL BLOOD GAS PO2 113.9 mmHg (80-100); ARTERIAL BLOOD GAS pH 7.34 (7.35-7.45)
[2023-01-16] VITALS (1354 sets, daily range): BP systolic 78–112; BP diastolic 53–85; PULSE 101–110; O2SAT 71–100
[2023-01-16 05:06] LABS: BASO # 0.1 K/mm3 (0.0-0.2); BASO % 0.3 % (0.0-2.0); EOS # 0.1 K/mm3 (0.0-0.7); EOS % 0.9 % (0.0-4.0); GRAN # 13.4 K/mm3 (1.4-6.5); GRAN % 83.3 % (42.2-75.2); LYMPH # 0.9 K/mm3 (1.2-3.4); LYMPH % 5.6 % (20.0-51.0); MEAN CELL VOLUME 97 fl (80.0-100.0); MEAN CORPUSCULAR HGB CONC 34 g/dl (33.0-37.0); MEAN PLATELET VOLUME 11.4 fl (7.4-10.4); MONO # 1.4 K/mm3 (0.1-0.6); MONO % 8.8 % (1.7-9.3); PLATELET COUNT 144 K/mm3 (130-400); RED BLOOD COUNT 2.93 M/mm3 (4.20-5.60); REDCELL DISTRIBUTION WIDTH-CV 13.1 % (11.5-14.5)
[2023-01-16 05:12] LABS: HEMATOCRIT 28.5 % (42.0-52.0); MEAN CORPUSCULAR HEMOGLOBIN 33 pg (27-31)
[2023-01-16 05:15] LABS: HEMOGLOBIN 9.7 g/dl (13.5-18.0)
[2023-01-16 05:28] LABS: CALCIUM 8.3 mg/dL (8.4-10.2); CHOLESTEROL RISK RATIO 4.4; CREATININE, serum 2.08 mg/dL (0.72-1.25); POTASSIUM 3.6 mmol/L (3.5-4.5)
[2023-01-16 05:51] LABS: TSH w REFLEX 0.627 uIU/mL (0.350-4.940)
--- NOTE | 2023-01-16 07:04 | NUR ---
[facility] LABS, NEW ORDERS, AND MEDICATIONS REVIEWED.
--- NOTE | 2023-01-16 09:17 | NUR ---
HEAD TO TOE ASSESSMENT COMPLETED. MEDICATIONS ADMINISTERED PER EMAR. PATIENT ASSISTED TO BEDSIDE COMMODE. PATIENT'S GOWN AND BEDDING CHANGED. CALL LIGHT WITHIN REACH. WILL CONTINUE TO MONITOR.
--- NOTE | 2023-01-16 15:24 | NUR ---
Records Officer attempted to contact Patient's DPOA, to follow-up for an intake assessment. Devi did not answer, SW was not able to leave a voicemail.
--- NOTE | 2023-01-16 17:36 | NUR ---
ASSESSMENTS AND MEDICATIONS ADMINISTERED PER ORDERS. PATIENT HAS NO COMPLAINTS OR CONCERNS AT THIS TIME.
[2023-01-17] VITALS (885 sets, daily range): BP systolic 106–126; BP diastolic 48–74; PULSE 85–110; TEMP 97.9–98.5; O2SAT 30–100
[2023-01-17 05:08] LABS: BASO # 0.1 K/mm3 (0.0-0.2); BASO % 0.5 % (0.0-2.0); EOS # 0.5 K/mm3 (0.0-0.7); EOS % 4.3 % (0.0-4.0); GRAN # 8.2 K/mm3 (1.4-6.5); GRAN % 74.7 % (42.2-75.2); LYMPH % 9.3 % (20.0-51.0); MEAN CELL VOLUME 99 fl (80.0-100.0); MEAN CORPUSCULAR HGB CONC 34 g/dl (33.0-37.0); MEAN PLATELET VOLUME 11.6 fl (7.4-10.4); MONO # 1.1 K/mm3 (0.1-0.6); MONO % 9.8 % (1.7-9.3); PLATELET COUNT 118 K/mm3 (130-400); RED BLOOD COUNT 2.68 M/mm3 (4.20-5.60); REDCELL DISTRIBUTION WIDTH-CV 13.2 % (11.5-14.5)
[2023-01-17 05:10] LABS: HEMATOCRIT 26.4 % (42.0-52.0); MEAN CORPUSCULAR HEMOGLOBIN 34 pg (27-31)
[2023-01-17 05:13] LABS: CALCIUM 7.8 mg/dL (8.4-10.2); CREATININE, serum 1.27 mg/dL (0.72-1.25); POTASSIUM 3.5 mmol/L (3.5-4.5)
--- NOTE | 2023-01-17 09:59 | NUR ---
Pharmacy Operations Specialist met with Patient at bedside to complete Care Managment assessment. Patient was able to provide that he lives with Devi, he is established with PCP, and pharmacy when outpatient. Patient states that he uses [facility] but does not remember his service provider. Patient reports the use of FWW at home and has one onhand. Patient verrifies his Advance Directive for Devi and states that she can provide transportation if discharged home. Patient presented confused when prompted for his dependancy/independency with ADLs, stating that he doesn't understand and "I guess" when further explained. Patient does not report Home Health services prior to admission.
--- NOTE | 2023-01-17 10:10 | NUR ---
RECEIVED REPORT FROM NIGHTSHIFT RNNEEL. SID VERIFIED. HEAD TO TOE ASSESSMENT COMPLETED. PATIENT HAD NO COMPLAINTS OR CONCERNS AT THIS TIME. CALL LIGHT WITHIN REACH. WILL CONTINUE TO MONITOR.
[2023-01-17 16:26] LABS: HEMATOCRIT 24.9 % (42.0-52.0); HEMOGLOBIN 8.4 g/dl (13.5-18.0)
--- NOTE | 2023-01-17 18:14 | NUR ---
REPORT CALLED TO BAILEY MCCARTHY ON SURGICAL FLOOR AT 1745. PATIENT AND BELONGINGS MOVED UP TO ROOM 346 AT 1758.
--- NOTE | 2023-01-17 18:28 | NUR ---
Patient transferred from icu to room 346. minimal needs at this time. Vss on room air. dinner ordered. Picc to [facility]. Will report off to nightnurse
--- NOTE | 2023-01-17 18:54 | NUR ---
[place] TO RESUME CARES. pATIETN SITTING AT EDGE OF BED EATING DINNER TRAY
--- NOTE | 2023-01-17 19:11 | NUR ---
The patient is sitting up at bedside eating dinner at this time. Denies any pain or discomfort. No concerns.
--- NOTE | 2023-01-17 20:08 | NUR ---
Audible wheeze, diminished throughout. Pt asked for albuterol neb when offered. Did not give Advair, was misplac ed on transfer.
[2023-01-18] VITALS (7 sets, daily range): BP systolic 91–134; BP diastolic 51–71; PULSE 80–104; TEMP 98.1–98.8
[2023-01-18 05:25] LABS: BASO % 0.4 % (0.0-2.0); EOS # 0.5 K/mm3 (0.0-0.7); EOS % 7.2 % (0.0-4.0); GRAN # 4.7 K/mm3 (1.4-6.5); GRAN % 63.6 % (42.2-75.2); LYMPH # 1.2 K/mm3 (1.2-3.4); LYMPH % 15.9 % (20.0-51.0); MEAN CELL VOLUME 100 fl (80.0-100.0); MEAN CORPUSCULAR HGB CONC 34 g/dl (33.0-37.0); MEAN PLATELET VOLUME 11.9 fl (7.4-10.4); MONO # 0.9 K/mm3 (0.1-0.6); MONO % 12.2 % (1.7-9.3); PLATELET COUNT 107 K/mm3 (130-400); RED BLOOD COUNT 2.47 M/mm3 (4.20-5.60); REDCELL DISTRIBUTION WIDTH-CV 13.3 % (11.5-14.5)
[2023-01-18 05:30] LABS: HEMATOCRIT 24.8 % (42.0-52.0); HEMOGLOBIN 8.3 g/dl (13.5-18.0); MEAN CORPUSCULAR HEMOGLOBIN 34 pg (27-31)
[2023-01-18 05:35] LABS: CALCIUM 8.2 mg/dL (8.4-10.2); CREATININE, serum 1.04 mg/dL (0.72-1.25); POTASSIUM 4.1 mmol/L (3.5-4.5)
--- NOTE | 2023-01-18 07:07 | NUR ---
Shift report received from the night nurse, BAILEY Andersen
--- NOTE | 2023-01-18 10:00 | NUR ---
Patient sitting up in bed alert and oriented. PICC at the right upper intact. Patient denies of shortness of breath. Patient reports of discomfort at bilateral LLE other than that patient has no other concerns except feel a little bit weak. See process intervention for notes.
--- NOTE | 2023-01-18 11:56 | NUR ---
Najera catheter discontinued per orders. Emptied 200cc of clear yellow urine from the bag. Patient tolerated the procedure well. Place urinal at the bedside.
[2023-01-18] MEDS ORDERED: DEMADEX 20MG20 M1 PO (15:06)
[2023-01-18] MEDS ORDERED: BUMEX 1MG TA1 MG/TA1 PO (15:07)
--- NOTE | 2023-01-18 15:11 | NUR ---
Patient reports of generalized pain with pain level of 8/10. [place] administered at 1511. See e-mar for notes.
[2023-01-18] MEDS ORDERED: ELIQUIS 5MG PO (15:45)
[2023-01-18] MEDS ORDERED: CREON 36000 (15:49)
[2023-01-18] MEDS ORDERED: PRINIVIL2.5 MG PO (15:51)
--- NOTE | 2023-01-18 18:09 | NUR ---
Patient sitting up i bed eating dinner. Patient reports of generalized pain due to history of fibromyalgia. Patient has no needs at this time.
[2023-01-18 18:15] LABS: HEMATOCRIT 28.5 % (42.0-52.0); HEMOGLOBIN 9.6 g/dl (13.5-18.0)
--- NOTE | 2023-01-18 22:12 | NUR ---
2140 PT HAD SALDANA REMOVED AT NOON AND PATIENT STILL HAD NOT URINATED. PCT BLADDER SCANNED PATIENT AND IT RESULTED TO 880. PT WAS ABLE TO VOID 250. RN DID A POST RESIDUAL VOID AND IT WAS GREATER THAN 850. CALL PLACED TO BAILEY PETER
--- NOTE | 2023-01-18 22:41 | NUR ---
PT STRAIGHT CATHED PER ORDERS. 1000ML RETURNED. PT TOLERATED WELL
--- NOTE | 2023-01-19 03:11 | NUR ---
0300 rn bladder scanned patient with greater than 1200cc in the bladder, the patient was unable to void while sitting on the edge of the bed, order for fortune obtained and to be placed
[2023-01-19 03:41] VITALS: BP 117/67; PULSE 98; TEMP 98.7
[2023-01-19 06:26] LABS: BASO % 0.6 % (0.0-2.0); EOS # 0.6 K/mm3 (0.0-0.7); EOS % 8.8 % (0.0-4.0); GRAN # 3.8 K/mm3 (1.4-6.5); LYMPH # 1.1 K/mm3 (1.2-3.4); LYMPH % 17.5 % (20.0-51.0); MEAN CELL VOLUME 102 fl (80.0-100.0); MEAN CORPUSCULAR HGB CONC 32 g/dl (33.0-37.0); MEAN PLATELET VOLUME 11.8 fl (7.4-10.4); MONO # 0.9 K/mm3 (0.1-0.6); MONO % 13.8 % (1.7-9.3); PLATELET COUNT 126 K/mm3 (130-400); RED BLOOD COUNT 2.66 M/mm3 (4.20-5.60); REDCELL DISTRIBUTION WIDTH-CV 13.4 % (11.5-14.5)
[2023-01-19 06:31] LABS: HEMATOCRIT 27.2 % (42.0-52.0); HEMOGLOBIN 8.6 g/dl (13.5-18.0); MEAN CORPUSCULAR HEMOGLOBIN 32 pg (27-31)
[2023-01-19 06:36] LABS: CALCIUM 8.5 mg/dL (8.4-10.2); CREATININE, serum 1.02 mg/dL (0.72-1.25); POTASSIUM 3.9 mmol/L (3.5-4.5)
[2023-01-19 07:52] VITALS: BP 125/65; PULSE 105; TEMP 98.6
--- NOTE | 2023-01-19 11:28 | NUR ---
SW informed that patient would dc'ing on this day. Patient stated he is okay with HH services upon dc and with 2 local agencies. DC documenation will be sent to [facility] and [facility].
[2023-01-19 12:15] VITALS: BP 93/58; PULSE 102; TEMP 99.3
--- NOTE | 2023-01-19 15:25 | NUR ---
PICC LINE REMOVED BY CHARGE NURSE.
--- NOTE | 2023-01-19 15:27 | NUR ---
DISCHARGE INSTRUCTIONS PROVIDED. PATIENT EDUCATION GIVEN. PICC LINE REMOVED BY CHARGE NURSE. MEDICATIONS REVIEWED. FOLLOW UP APPOINTMENTS DISCUSSED. SALDANA CATHETER CARE DISCUSSED. EDUCATION GIVEN ON CATH CARE, LEG BAG AND SALDANA CARE IN GENERAL. PICC LINE REMOVAL CARE PROVIDED. PATIENT DENIES ANY QUESTIONS OR CONCERNS.
--- NOTE | 2023-01-19 16:15 | NUR ---
PATIENT ESCORTED OUT VIA WHEELCHAIR
== END 2023-01-19 16:14 | disposition home health service (06) | DRG 871 ==
LOC: COL.ER 05:43 → ICU 08:48 → SURG 09:04
PROVIDERS: Emergency Medicine; Internal Medicine Pulmonary Disease; Student in an Organized Health Care Education/Training Program; ADMIT Internal Medicine
PROC: 5A09357 Assistance with Respiratory Ventilation, Less than 24 Consecutive Hours, Continuous Positive Airway Pressure (ICD-10-PCS; principal; 2023-01-15)
PROC: 02HV33Z Insertion of Infusion Device into Superior Vena Cava, Percutaneous Approach (ICD-10-PCS; 2023-01-15)
DX: A41.9 Sepsis, unspecified organism (principal); J96.01 Acute respiratory failure with hypoxia; R65.21 Severe sepsis with septic shock; J96.21 Acute and chronic respiratory failure with hypoxia; A08.11 Acute gastroenteropathy due to Norwalk agent; A04.4 Other intestinal Escherichia coli infections; I50.32 Chronic diastolic (congestive) heart failure; N17.9 Acute kidney failure, unspecified; E87.20 Acidosis, unspecified; J44.9 Chronic obstructive pulmonary disease, unspecified; I48.91 Unspecified atrial fibrillation; Z79.01 Long term (current) use of anticoagulants; I11.0 Hypertensive heart disease with heart failure; G47.33 Obstructive sleep apnea (adult) (pediatric); E03.9 Hypothyroidism, unspecified; N40.0 Benign prostatic hyperplasia without lower urinary tract symptoms; E78.5 Hyperlipidemia, unspecified; I25.5 Ischemic cardiomyopathy; Z79.890 Hormone replacement therapy; Z99.81 Dependence on supplemental oxygen; Z86.73 Personal history of transient ischemic attack (TIA), and cerebral infarction without residual deficits; Z79.899 Other long term (current) drug therapy; Z79.82 Long term (current) use of aspirin; Z20.822 Contact with and (suspected) exposure to COVID-19
CPT/HCPCS: C1751; C9113; J1644; J2543; J3370; J7030; J7050; J7060; J7120

== ENCOUNTER 2023-12-19 20:44 | Observation (INO) | payer MEDICARE, BC ==
[~2023-12-19] VITALS: Ht 177.8 cm; Wt 108.8 kg
[~2023-12-19 20:44] MED LIST changes: +AMITRIPTYLINE H50 M1 PO; +B-12 250 MCG PO; +CENTRUM SILVER1 CTB PO; +CREON 36000; +CREON 36000 PO; +DECADRON6 MG PO; +ENTRESTO 49 MG1 EACH PO; +FARXIGA10 PO; +FENTANYL 50MCG TD; +FLONASE NASAL S16 GM NS; +LEVOXYL0.088 MG PO; +LYRICA 150MG C150 MG PO; +MELATONIN5 M1 SL; +PACERONE200 MG PO; +REVATIO20 MG PO; +TIKOSYN0.25 MG PO; +VITAMIN B COMPL1 SGL PO; +ZYRTEC 10MG10 MG PO
[2023-12-19 21:13] LABS: BASO % 0.6 % (0.0-2.0); EOS # 0.9 K/mm3 (0.0-0.7); EOS % 12.7 % (0.0-4.0); GRAN # 4.2 K/mm3 (1.4-6.5); GRAN % 62.5 % (42.2-75.2); HEMATOCRIT 34.6 % (42.0-52.0); HEMOGLOBIN 11.1 g/dl (13.5-18.0); LYMPH % 15.1 % (20.0-51.0); MEAN CELL VOLUME 104 fl (80.0-100.0); MEAN CORPUSCULAR HEMOGLOBIN 33 pg (27-31); MEAN CORPUSCULAR HGB CONC 32 g/dl (33.0-37.0); MEAN PLATELET VOLUME 11.3 fl (7.4-10.4); MONO # 0.6 K/mm3 (0.1-0.6); PLATELET COUNT 178 K/mm3 (130-400); RED BLOOD COUNT 3.34 M/mm3 (4.20-5.60); REDCELL DISTRIBUTION WIDTH-CV 13.6 % (11.5-14.5)
[2023-12-19 21:30] LABS: ALANINE AMINOTRANSFERASE 13 U/L (0-55); ALBUMIN 3.9 gm/dL (3.4-4.8); ALKALINE PHOSPHATASE 66 U/L (40-150); ANION GAP 11 mmol/L (7-16); AST,SGOT 16 U/L (5-34); BILIRUBIN,TOTAL 0.4 mg/dL (0.2-1.2); BLOOD UREA NITROGEN 33 mg/dL (8-26); CALCIUM 9.1 mg/dL (8.4-10.2); CARBON DIOXIDE 22 mmol/L (23-31); CHLORIDE 103 mmol/L (98-107); CREATININE, serum 1.92 mg/dL (0.72-1.25); GLUCOSE 139 mg/dL (70-99); LIPASE 15 U/L (8-78); POTASSIUM 5.1 mmol/L (3.5-4.5); SODIUM 136 mmol/L (136-145); TOTAL PROTEIN 6.7 gm/dL (6.2-8.1)
[2023-12-19 21:41] LABS: TROPONIN-I < 0.010 ng/mL (0.00-0.033)
[2023-12-19 22:45] VITALS: BP 118/76; O2SAT 97
[2023-12-20] VITALS (12 sets, daily range): BP systolic 98–153; BP diastolic 66–92; PULSE 59–70; TEMP 97.3–98.2
--- NOTE | 2023-12-20 01:47 | NUR ---
Report recieved from BAILEY Pearson at this time. All questions answered.
--- NOTE | 2023-12-20 02:12 | NUR ---
Patient arrived to the unit at this time with belongings at this time. Assessment and med rec complete. IV in left AC flushes easily with no complications. Patiented oriented to room, call light, phone, and bathroom. Rates his chest pain at 5/10. States he is hungry, food and drink given. Denies any other needs at this time. Call light and personal items in reach. Bed in low position and bed alarm on.
--- NOTE | 2023-12-20 05:59 | NUR ---
Patient resting in bed. Rates his pain at 5/10, pain meds given. Denies any needs at this time. Call light and personal items in reach. Bed in low position and bed alarm on.
--- NOTE | 2023-12-20 07:03 | NUR ---
MD NOTIFED PATIENT COMPLAINING OF CHEST PAIN 6/10 TO THE LEFT CHEST. PATIENT DESCRIBED PAIN DULL AND CONSTANT, NO RADIATION. MD ORDERED 2MG IV MORHPNE X NOW, 0.4 NITRO SL(FOLLOW PROTOCOL), TROPONIN LAB NOW AND EKG.
--- NOTE | 2023-12-20 07:07 | NUR ---
RT INFORMED RN PLACED ORDER FOR EKG D/T CHEST PAIN
--- NOTE | 2023-12-20 07:20 | NUR ---
PATIENT GIVEN IV MORPHINE AND ONE TAB OF NITRO SL WITH NO IMPRVEMENT IN CHEST PAIN. RT AT BEDSIDE DOING EKG.
--- NOTE | 2023-12-20 07:29 | NUR ---
THIS RN INFORMED MD THAT PATIENT STATES HIS CHEST PAIN CAME DOWN FROM 6 TO 5, ANOTHER NITRO TAB WAS GIVEN. PATIENT HAS A FENTANYL PATCH ORDERED FOR THIS AM, WELL AMIODARONE AND ELIQUIS. PER RN TO PLACE A NITRO PATCH 0.2MG TO LEFT CHEST AND MAY ALSO GIVE SCHEDULED MEDS.
--- NOTE | 2023-12-20 07:45 | NUR ---
PATIENT AWAKE AND ALERT, SITTNG UP IN BED EATING BREAKFAST. PATIENT DENIES ANY NEEDS OR COMPLAINTS AT THIS TIME. PATIENTS CALL LIGHT WIHTIN REACH, FALL PRECAUTIONS IN PLACE.
[2023-12-20 09:19] LABS: CREATININE, serum 1.77 mg/dL (0.72-1.25); MAGNESIUM 2.1 mg/dL (1.6-2.6); POTASSIUM 4.8 mmol/L (3.5-4.5)
[2023-12-20 09:28] LABS: TROPONIN-I 0.022 ng/mL (0.00-0.033)
[2023-12-20 09:34] LABS: COLLECTION METHOD CLEAN CATCH
--- NOTE | 2023-12-20 10:05 | NUR ---
pipe out worker met with pt to discuss discharge planning. Pt was recently admitted to the hospital and established with [facility]. Pt reports he lives alone in [place]. He sees Dr. Shrestha and obtains medications from [facility] with some difficulties. He reports he just doesn't use some medications due to cost, but he gets samples and coupons from the provider. Pt has his friend Devi/[facility] as his contact [phone]. Pt reports he is independent with ADLS and has a FWW and wheelchair for DME. Pt would like to return home at discharge. Discharge Plan: Home with [facility]
[2023-12-20 10:32] LABS: SQUAMOUS EPITHELIAL 0-2 /hpf (0-10); URINE APPEARANCE Clear (CLEAR/HAZY); URINE BLOOD Negative (NEGATIVE); URINE COLOR Yellow (YELLOW); URINE GLUCOSE 2+ (NEGATIVE); URINE KETONE Negative (NEGATIVE); URINE NITRATE Negative (NEGATIVE); URINE PROTEIN(semi-quant) Negative (NEGATIVE); URINE RBC 0-2 /hpf (0-2); URINE UROBILINOGEN 0.2 E.U/dL (0.2-1.0); URINE WBC 0-2 /hpf (0-2)
--- NOTE | 2023-12-20 12:26 | NUR ---
Data: Tariff Publishing Agent visit attempted during Tariff Publishing Agent rounds. Assessment: Patient was sleeping. Plan of Care: Chaplains will remain available as needed/requested while Patient is admitted to this hospital.
--- NOTE | 2023-12-20 16:27 | NUR ---
developmental services worker faxed updates to [facility].
--- NOTE | 2023-12-20 17:00 | NUR ---
PATIENT AWAKE AND ALERT, SITTING UP IN BED. PATIENT DENIES ANY NEEDS OR COMPLAINTS AT THIS TIME. CALL LIGHT WITHIN REACH, PATIENTS AT BEDSIDE.
--- NOTE | 2023-12-20 19:05 | NUR ---
PT RESTING IN BED WATCHING TV. PT IS ON RA. PT IS PACED ON TELE. PT IS AXOX3. PT HAS CALL LIGHT AND INSTRUCTED TO CALL WITH ALL NEEDS.
--- NOTE | 2023-12-20 20:44 | NUR ---
PT COMPLAINING OF ANXIETY AND RESTLESSNESS. HS MEDS GIVEN PRIOR. PT STATED THAT Monse BLANCO WAS GOING TO PRESCRIBE SOMETHING FOR ANXIETY. IT IS NOTED IN HER PROGRESS NOTE FROM TODAY. THIS RN SPOKE WITH MARTÍNEZ RICKS MANAGER BUSINESS CONTINUITY AND ORDERS RECEIVED.
[2023-12-21] VITALS (7 sets, daily range): BP systolic 102–121; BP diastolic 63–72; PULSE 56–62; TEMP 97.8–98.2
--- NOTE | 2023-12-21 06:45 | NUR ---
PATIENT ASLEEP, LAYING IN BED. CALL LIGHT WITHIN REACH, FALL PRECAUTIONS IN PLACE.
[2023-12-21 07:52] LABS: BASO % 0.5 % (0.0-2.0); EOS # 0.7 K/mm3 (0.0-0.7); EOS % 12.1 % (0.0-4.0); GRAN # 2.9 K/mm3 (1.4-6.5); GRAN % 49.8 % (42.2-75.2); HEMOGLOBIN 10.2 g/dl (13.5-18.0); LYMPH # 1.4 K/mm3 (1.2-3.4); LYMPH % 24.2 % (20.0-51.0); MEAN CELL VOLUME 105 fl (80.0-100.0); MEAN CORPUSCULAR HEMOGLOBIN 33 pg (27-31); MEAN CORPUSCULAR HGB CONC 31 g/dl (33.0-37.0); MEAN PLATELET VOLUME 11.3 fl (7.4-10.4); MONO # 0.7 K/mm3 (0.1-0.6); PLATELET COUNT 159 K/mm3 (130-400); RED BLOOD COUNT 3.14 M/mm3 (4.20-5.60); REDCELL DISTRIBUTION WIDTH-CV 13.9 % (11.5-14.5)
[2023-12-21 07:59] LABS: HEMATOCRIT 32.8 % (42.0-52.0)
[2023-12-21 08:20] LABS: CALCIUM 8.7 mg/dL (8.4-10.2); CREATININE, serum 1.73 mg/dL (0.72-1.25); POTASSIUM 4.4 mmol/L (3.5-4.5)
[2023-12-21] MEDS ORDERED: LEXAPRO 5MG5 MG PO (11:24)
[2023-12-21] MEDS ORDERED: LASIX 20MG TABL20 MG PO (11:25)
--- NOTE | 2023-12-21 12:11 | NUR ---
IV AND TELE REMOVED. PATIENT DENIES ANY NEEDS OR COMPLAITS AT THIS TIME. FLU VACCINE ADMINISTERED WIHT NO ISSUES, PATIET TOLERATED WELL. PATIENTS CAREFGIVER ON HER WAY.
--- NOTE | 2023-12-21 13:10 | NUR ---
PATIENT ASSISTED TO DRESS. PATIENT TAKEN TO ER ENTRANCE VIA WHEELCHAIR BY STAFF WHERE HE LEFT IN STABLE CONDITION WITH HIS CAREGIVER.
--- NOTE | 2023-12-21 14:40 | NUR ---
ARNOLD faxed referral packet to [facility].
--- NOTE | 2023-12-22 16:15 | NUR ---
reel worker contacted [facility] with [facility] and confirmed that they received home health orders upon patient's discharge and will be admitting patient for services.
[2023-12-26] MEDS ORDERED: ZYRTEC 10MG10 MG PO (12:03)
[2023-12-26] MEDS ORDERED: PRIL40 PO (12:05)
[2023-12-26] MEDS ORDERED: ELIQUIS 5MG PO (12:06)
[2023-12-26] MEDS ORDERED: ENTRESTO 49 MG1 EACH PO (12:07)
[2023-12-26] MEDS ORDERED: TIKOSYN0.25 MG PO (12:08)
[2023-12-26] MEDS ORDERED: B COMPLEX #11 TA1 PO (12:13)
== END 2023-12-21 13:21 | disposition home or self-care (01) ==
LOC: COL.ER 20:44 → MEDICAL 12-20 00:12 → EDBEDREQTM 12-20 01:26 → MEDICAL 12-21 13:21
PROVIDERS: Emergency Medicine; Internal Medicine; ADMIT Internal Medicine
DX: I50.23 Acute on chronic systolic (congestive) heart failure (principal); E87.6 Hypokalemia; E11.22 Type 2 diabetes mellitus with diabetic chronic kidney disease; I12.9 Hypertensive chronic kidney disease with stage 1 through stage 4 chronic kidney disease, or unspecified chronic kidney disease; N18.9 Chronic kidney disease, unspecified; D63.1 Anemia in chronic kidney disease; J44.9 Chronic obstructive pulmonary disease, unspecified; J96.11 Chronic respiratory failure with hypoxia; F41.1 Generalized anxiety disorder; I25.10 Atherosclerotic heart disease of native coronary artery without angina pectoris; E03.9 Hypothyroidism, unspecified; I48.91 Unspecified atrial fibrillation; K22.70 Barrett's esophagus without dysplasia; G47.33 Obstructive sleep apnea (adult) (pediatric); G89.29 Other chronic pain; Z79.84 Long term (current) use of oral hypoglycemic drugs; Z79.890 Hormone replacement therapy; Z79.01 Long term (current) use of anticoagulants; Z79.899 Other long term (current) drug therapy; Z95.1 Presence of aortocoronary bypass graft; Z85.118 Personal history of other malignant neoplasm of bronchus and lung; Z86.711 Personal history of pulmonary embolism; Z86.73 Personal history of transient ischemic attack (TIA), and cerebral infarction without residual deficits; Z95.810 Presence of automatic (implantable) cardiac defibrillator; Z87.820 Personal history of traumatic brain injury; Z23 Encounter for immunization; Z91.199 Patient's noncompliance with other medical treatment and regimen due to unspecified reason
CPT/HCPCS: G0008; G0378; J1940; J2270

== ENCOUNTER 2024-03-02 16:37 | Emergency (ER) | payer MEDICARE, BC ==
[~2024-03-02] VITALS: Ht 177.8 cm; Wt 104.5 kg
[~2024-03-02 16:37] MED LIST changes: +LEXAPRO 5MG5 MG PO
[2024-03-02 17:53] LABS: BASO # 0.1 K/mm3 (0.0-0.2); BASO % 0.7 % (0.0-2.0); EOS # 0.3 K/mm3 (0.0-0.7); EOS % 3.7 % (0.0-4.0); GRAN # 4.9 K/mm3 (1.4-6.5); GRAN % 70.1 % (42.2-75.2); HEMATOCRIT 38.7 % (42.0-52.0); HEMOGLOBIN 12.6 g/dl (13.5-18.0); LYMPH % 14.2 % (20.0-51.0); MEAN CELL VOLUME 99 fl (80.0-100.0); MEAN CORPUSCULAR HEMOGLOBIN 32 pg (27-31); MEAN CORPUSCULAR HGB CONC 33 g/dl (33.0-37.0); MEAN PLATELET VOLUME 11.1 fl (7.4-10.4); MONO # 0.8 K/mm3 (0.1-0.6); MONO % 11.2 % (1.7-9.3); PLATELET COUNT 160 K/mm3 (130-400); RED BLOOD COUNT 3.93 M/mm3 (4.20-5.60); REDCELL DISTRIBUTION WIDTH-CV 13.4 % (11.5-14.5)
[2024-03-02 18:00] LABS: ERYTHROCYTE SEDIMENTATION RATE 4 mm/hr (0-30)
[2024-03-02 18:11] LABS: ALBUMIN 3.8 g/dL (3.4-4.8); BILIRUBIN,TOTAL 0.4 mg/dL (0.2-1.2); C-REACTIVE PROTEIN 0.51 mg/dL (0.00-0.50); CALCIUM 9.3 mg/dL (8.4-10.2); CREATININE, serum 1.34 mg/dL (0.72-1.25); POTASSIUM 4.5 mEq/L (3.5-4.5); TOTAL PROTEIN 6.7 g/dl (6.2-8.1)
[2024-03-02 19:30] VITALS: BP 126/78; PULSE 78; TEMP 98
== END 2024-03-02 19:40 | disposition short-term general hospital (02) ==
LOC: COL.ER 16:37
PROVIDERS: Nurse Practitioner
DX: Z45.018 Encounter for adjustment and management of other part of cardiac pacemaker (principal)

== ENCOUNTER → 2024-05-11 | Outpatient (CLI) | payer MEDICARE, BC ==
[~2024-05-11] MED LIST changes: +Albuterol 0.083% Neb Soln 2.5 MG/3 ML UD IH ONE; +BALANCE B-1001 TA1 PO; +ENTRESTO 24 MG1 EACH PO; +FENTANYL 75MCG TD; +LEVOXYL0.1 MG PO; +MELATONIN ER10 MG PO; +MULTI-VITAMIN W1 TA1 PO; +VITAMINC1000TA PO
== END ==
LOC: COL.CARD 10:04
DX: R06.02 Shortness of breath (principal)

== ENCOUNTER → 2024-06-09 | Outpatient (CLI) | payer MEDICARE, BC ==
[~2024-06-09] VITALS: Ht 177.8 cm; Wt 105.0 kg
[~2024-06-09] MED LIST changes: -Albuterol 0.083% Neb Soln 2.5 MG/3 ML UD IH ONE
[2024-06-09 12:49] VITALS: BP 144/77; PULSE 90; TEMP 98
[2024-06-09 14:30] VITALS: BP 122/67; PULSE 65
[2024-06-09 14:45] VITALS: BP 105/58; PULSE 64
[2024-06-09 15:00] VITALS: BP 108/58; PULSE 60
[2024-06-09 15:15] VITALS: BP 118/56; PULSE 60
== END ==
LOC: COL.RAD 11:43
DX: M51.36 Other intervertebral disc degeneration, lumbar region (principal); M41.9 Scoliosis, unspecified; M53.3 Sacrococcygeal disorders, not elsewhere classified; M48.061 Spinal stenosis, lumbar region without neurogenic claudication

== ENCOUNTER → 2024-07-06 | Outpatient (CLI) | payer MEDICARE, BC ==
[~2024-07-06] VITALS: Ht 177.8 cm; Wt 93.0 kg
[~2024-07-06] MED LIST changes: +FARXIGA5 PO; +FLOVENT DI50 MCG/Act IH; +MEGA MULTIVITAM1 TAB PO; +SYNTHROID 0.0.025 MG PO; +TRELEGY ELLIPT1 EAC1 IH; +TRELEGY ELLIPT1 EACH IH; +Triamcinolone 40 MG/ML 1 ML VIAL IJ SCH; +VITAMINC1000TA; +ZYRTEC10MGSGL
[2024-07-06 12:51] VITALS: BP 137/75; PULSE 70; TEMP 98
[2024-07-06 13:50] VITALS: BP 110/68; PULSE 60
--- NOTE | 2024-07-06 14:12 | NUR ---
PATIENT HAS COMPLETED HIS RECOVERY PERIOD WITHOUT ANY ISSUES. PATIENT SAYS THERE IS NO NEW PAIN, NUMBNESS, OR TINGLING AND THAT HE FEELS "JUST LIKE I ALWAYS DO." THE BANDAGE IS CLEAN, DRY, AND INTACT. PATIENT HAS ALL BELONGINGS AND D/C INSTRUCTIONS AND IS ABLE TO TEACH THEM BACK. PATIENT ESCORTED TO HIS RIDE BY BAILEY VALENTIN IN WHEELCHAIR. ALL NEEDS MET.
== END ==
LOC: COL.RAD 12:04
DX: M48.061 Spinal stenosis, lumbar region without neurogenic claudication (principal)
CPT/HCPCS: J0665; J3301